=== PATIENT | male | born 1950 | race Caucasian/White ===

== ENCOUNTER 2020-09-10 08:52 | Day surgery (SDC) | payer MEDICARE, OTHER, SELFPAY ==
[2020-09-04 12:21] VITALS: BMI 36.7
--- NOTE | 2020-09-09 10:43 | P.CONAN_ITS ---
Documented by User: Eliz Myles 09/09/20 10:44 HPI - Anesthesia Eval Consult details Narrative: 70yo M for Colonoscopy FORMERLY [facility] Past Medical History Medical History Hyperlipidemia Pre-diabetes Surgical History Surgical History No significant past surgical history Social History Social History Are you a primary home care specialist to a significant other at home: No Do you presently have visiting nurse or other home services: No Smoking Status: Never smoker Use of substances other than those prescribed or required for medical reasons: No Advance Directives: No Advance Directives Information Provided: No Advance Directives on File: No Meds Allergies Allergy/AdvReac Type Severity Reaction Status Date / Time No Known Allergies Allergy Unverified 09/04/20 12:19 [No Known Allergies*] Home Medications Medication Instructions Recorded Confirmed Type simvastatin 1 tab PO BEDTIME 09/04/20 09/04/20 History Exam Exam Date and Time: September 09, 2020 1043 Height,Weight and Vital Signs: Height 5 ft 4 in Weight 97.069 kg Assessment and Plan Assessment Anesthesia Assessment: Chart Reviewed Documented by User: Robert Olivares MD 09/10/20 10:12 [facility] Past Medical History Medical History Hyperlipidemia Pre-diabetes Surgical History Surgical History No significant past surgical history Social History Social History Are you a primary home care specialist to a significant other at home: No Do you presently have visiting nurse or other home services: No Smoking Status: Never smoker Use of substances other than those prescribed or required for medical reasons: No Advance Directives: No Advance Directives Information Provided: No Advance Directives on File: No Meds Allergies Allergy/AdvReac Type Severity Reaction Status Date / Time No Known Allergies Allergy Unverified 09/04/20 12:19 [No Known Allergies*] Home Medications Medication Instructions Recorded Confirmed Type simvastatin 1 tab PO BEDTIME 09/04/20 09/04/20 History Exam Airway Mallampati Class: III TM Dist: >3cm Neck ROM: Full Loose/Missing/Broken Teeth: No Heart: rrr Lungs: nl Other: ao Assessment and Plan Assessment Anesthesia Assessment: Anesthesia Plan Discussed and Chart Reviewed Final Anesthetic Review NPO: Yes ASA Class: III Final Preanesthetic Review: No Changes in Pt Med Stat, Meds/Allgs Chart Reviewed, Consent Obtained/Reviewed and Anes Risks/Benef Reviewed Procedure Risk: Low Anesthetic Plan Anesthetic Plan: MAC: Disposition: Standard PACU
[2020-09-10 09:13] VITALS: BP 151/76; PULSE 48; RESP 18; TEMP 36.4; O2SAT 98
[2020-09-10] MEDS: Lactated Ringers 1,000 ML 100 ML IVCONT (09:24)
--- NOTE | 2020-09-10 10:12 | MHC.SHP ---
Pre-Procedural Eval Section A The patient is an INPATIENT: No Changes since office visit: No Cold of Flu in the past 2 weeks, No New Medical Problems, No Changes in Medication and No Patient answered all questions The History & Physical has been completed within 30 days and I have reviewed it.: Yes Section B Chief Complaint: abnormal findings in stool Allergies: Allergies Allergy/AdvReac Type Severity Reaction Status Date / Time No Known Allergies Allergy Unverified 09/04/20 12:19 [No Known Allergies*] Plan Patient has been examined and remains a candidate for the planned procedure
[2020-09-10 10:42] VITALS: BP 107/60; PULSE 62; RESP 20; TEMP 36.2; O2SAT 97
--- NOTE | 2020-09-10 10:48 | PM.OP ---
Brief Operative Note Date of Service: 09/10/20 Pre-op diagnosis: positive cologuard test Post-op diagnosis: same (colon polyps) Procedure: colonoscopy Surgeon: Brant Ruiz Anesthesia: MAC Estimated blood loss (mL): 2 Condition: stable Disposition: PACU
[2020-09-10 10:57] VITALS: BP 100/70; PULSE 53; RESP 19; TEMP 36.2
--- NOTE | 2020-09-10 11:11 | OP_ITS ---
SURGEON: Brant Ruiz MD INDICATIONS: Abnormal findings in stool. PREOPERATIVE DIAGNOSIS: POSTOPERATIVE DIAGNOSIS: PROCEDURE PERFORMED: Colonoscopy to the terminal ileum with snare polypectomy and biopsy. ESTIMATED BLOOD LOSS: COMPLICATIONS: ANESTHESIA: ASSISTANTS: SPECIMENS: MEDICATIONS: Monitored anesthesia care. DESCRIPTION OF PROCEDURE: History and physical performed. The risks and benefits of the procedure were explained to the patient. Informed consent was obtained. The patient was placed in the left lateral decubitus position. A digital rectal exam was performed and was found to be normal. The Olympus pediatric video colonoscope was introduced into the rectum and advanced to the cecum without difficulty. The cecum was identified by transillumination, palpation, and identification of ileocecal valve. Examination was performed and the scope was removed. He tolerated the procedure well and was taken to recovery area in stable condition. FINDINGS: The terminal ileum was normal. The visualized colonic mucosa was normal. The quality of the prep was good. A single polyp measuring 6 mm was identified at 80 cm and removed with a snare and recovered via suction. The second polyp at 40 cm was less than 5 mm and this was removed with biopsy forceps. Retroflexed examination showed some small internal hemorrhoids. There was mild sigmoid diverticulosis. IMPRESSION: Colon polyps. RECOMMENDATION: Follow up the biopsy results. MD NUHA Strong/NADER / [id number]
== END 2020-09-10 11:31 | disposition home or self-care (01) ==
PROVIDERS: PCP Family Medicine; Visit Provider Internal Medicine Gastroenterology
PROC: 0DJD8ZZ Inspection of Lower Intestinal Tract, Via Natural or Artificial Opening Endoscopic (ICD-10-PCS; CPT 45378; principal; 2020-09-10 10:20)
DX: R19.5 Other fecal abnormalities (principal); D12.6 Benign neoplasm of colon, unspecified; K63.5 Polyp of colon; K57.30 Diverticulosis of large intestine without perforation or abscess without bleeding; K64.8 Other hemorrhoids
CPT/HCPCS: 45385; 45380; 88305

== ENCOUNTER 2020-11-25 08:13 | Outpatient (REF) | payer MEDICARE, OTHER, SELFPAY ==
[2020-11-25 11:04] LABS: Estimated Average Glucose 160 mg/dL; Hemoglobin A1c % 7.2 %
[2020-11-25 11:09] LABS: Creatinine Urine 183.53 mg/dL; Microalbum/Creatinine Ratio Ur 4.3 ug/mg cr
[2020-11-25 11:21] LABS: Alanine Aminotransferase 20 U/L (0-40); Cholesterol 154 mg/dL; Glucose Fasting 127 mg/dL (60-99); HDL Cholesterol 51 mg/dL; LDL Cholesterol Calculated 84 mg/dl; Triglycerides 96 mg/dL
== END 2020-11-25 08:14 | disposition home or self-care (01) ==
LOC: HO.10HDL 08:13
PROVIDERS: Visit Provider Family Medicine
DX: E78.00 Pure hypercholesterolemia, unspecified (principal); Z79.899 Other long term (current) drug therapy; E11.9 Type 2 diabetes mellitus without complications
CPT/HCPCS: 36415; 80061; 82043; 82550; 82947; 83036; 84460

== ENCOUNTER 2021-07-11 07:34 | Outpatient (REF) | payer MEDICARE, OTHER, SELFPAY ==
[2021-07-11 10:44] LABS: Glucose Fasting 138 mg/dL (60-99)
[2021-07-11 11:04] LABS: Estimated Average Glucose 174 mg/dL; Hemoglobin A1c % 7.7 %
== END 2021-07-11 07:35 | disposition home or self-care (01) ==
LOC: HO.10HDL 07:34
PROVIDERS: Visit Provider Family Medicine
DX: E11.9 Type 2 diabetes mellitus without complications (principal)
CPT/HCPCS: 36415; 82947; 83036

== ENCOUNTER 2022-04-16 07:22 | Outpatient (REF) | payer MEDICARE, OTHER, SELFPAY ==
[2022-04-16 09:11] LABS: Estimated Average Glucose 289 mg/dL; Hemoglobin A1c % 11.7 %
[2022-04-16 09:21] LABS: Alanine Aminotransferase 22 U/L (0-40); Anion Gap 13 (12-20); Aspartate Amino Transferase 17 U/L (5-37); Blood Urea Nitrogen 14 mg/dL (9-16); Carbon Dioxide 28 mmol/L (22-29); Chloride 103 mmol/L (96-108); Cholesterol 168 mg/dL; Estimated Glomerular Filt Rate > 60; Glucose Fasting 230 mg/dL (60-99); HDL Cholesterol 48 mg/dL; LDL Cholesterol Calculated 102 mg/dl; Potassium 4.5 mmol/L (3.3-5.1); Sodium 139 mmol/L (135-145); Triglycerides 92 mg/dL
[2022-04-16 11:45] LABS: Creatinine Urine 302.99 mg/dL; Microalbum/Creatinine Ratio Ur 6.9 ug/mg cr
== END 2022-04-16 07:23 | disposition home or self-care (01) ==
LOC: HO.LAB 07:22
PROVIDERS: PCP Family Medicine; Visit Provider Family Medicine
DX: E11.9 Type 2 diabetes mellitus without complications (principal); E78.00 Pure hypercholesterolemia, unspecified; Z79.899 Other long term (current) drug therapy
CPT/HCPCS: 36415; 80051; 80061; 82043; 82550; 82565; 82947; 83036; 84450; 84460; 84520

== ENCOUNTER 2023-04-23 07:32 | Outpatient (REF) | payer MEDICARE, OTHER, SELFPAY ==
[2023-04-23 09:05] LABS: Alanine Aminotransferase 14 U/L (0-40); Albumin Level 3.8 g/dL (3.5-5.0); Alkaline Phosphatase 76 U/L (39-117); Anion Gap 13 (12-20); Aspartate Amino Transferase 18 U/L (5-37); Bilirubin Total 2.2 mg/dL (0.0-1.0); Blood Urea Nitrogen 16 mg/dL (9-16); Calcium 8.9 mg/dL (8.4-10.2); Carbon Dioxide 25 mmol/L (22-29); Chloride 107 mmol/L (96-108); Cholesterol 175 mg/dL; Estimated Glomerular Filt Rate > 60; Glucose Fasting 129 mg/dL (60-99); HDL Cholesterol 42 mg/dL; LDL Cholesterol Calculated 124 mg/dl; Potassium 3.5 mmol/L (3.3-5.1); Sodium 141 mmol/L (135-145); Total Protein 6.6 g/dL (6.5-8.0); Triglycerides 49 mg/dL
[2023-04-23 09:16] LABS: TSH reflex Free T4 4.89 uIU/mL (0.32-4.0)
[2023-04-23 11:39] LABS: Free T4 (Free Thyroxine) 0.85 ng/dL (0.71-1.85)
== END 2023-04-23 07:33 | disposition home or self-care (01) ==
LOC: HO.LAB 07:32
PROVIDERS: PCP Nurse Practitioner Family; Visit Provider Nurse Practitioner Family
DX: Z12.5 Encounter for screening for malignant neoplasm of prostate (principal); E78.5 Hyperlipidemia, unspecified
CPT/HCPCS: 36415; 80053; 80061; 81003; 84153; 84439; 84443; 85025

== ENCOUNTER 2023-04-27 09:52 | Outpatient (AMB) | payer MEDICARE, OTHER, SELFPAY ==
[2023-04-27 10:11] VITALS: BP 126/78; PULSE 48; O2SAT 96; BMI 36.2
--- NOTE | 2023-04-27 10:11 | A.OFFPC_ITS ---
Vital Signs 04/27/23 10:11 Height 5 ft 4 in Weight 211 lb BMI 36.2 BP 126/78 Blood Pressure Location Rt brachial Position Sitting Pulse 48 L Pulse Source Pulse Oximeter Pulse Oximetry (%) 96 Oxygen Delivery Method Room Air Intake Visit Reasons: 6 Month follow up Allergies No Known Allergies [No Known Allergies*] Allergy (Unverified 04/27/23 10:13) Medication List - Last Reconciled 04/27/23 by RADHA Houston simvastatin 1 tab PO BEDTIME Tobacco use date assessed: 04/27/23 Fall risk assessment: No Falls in past year Last assessed Fall Risk: 04/27/23 Dental Screening Dental Screen Date: 04/27/23 HPI 6 Month follow up HPI Details Pt is a diabetic, on a statin. A1c in office today is 7.1. Due for microalbumin, will order. Denies polyuria, polydipsia, and neuropathy. Pt denies any signs and symptoms of hypoglycemia and does know how to correct it. Will refer for eye exam. Will start metformin 500mg. Will send meter and supplies. Pt is bradycardic, will order holter and echo. Denies chest pain, shortness of breath, and dizziness. [facility], LAT[facility] Medical History Hyperlipidemia Pre-diabetes Surgical History No significant past surgical history Social History Housing: Other (pt refused to say ) Are you a primary animal daycare provider to a significant other at home: No Do you presently have visiting nurse or other home services: No Patient Tobacco Use Status: Never used Tobacco e-Cigarette/Vaping Use: Never Used Second Hand Smoke Exposure: No Current occupational status: retired Cognitive needs: No Hearing needs: No Vision needs: Yes Review of Systems Const Reports as per HPI Physical exam (Primary Care) Vital Signs: Last Vital Signs Pulse 48 L 04/27/23 10:11 BP 126/78 04/27/23 10:11 Pulse Ox 96 04/27/23 10:11 Oxygen Delivery Method Room Air 04/27/23 10:11 BMI result Body Mass Index 36.2 Tobacco/Smoking Status: Tobacco use Status Tobacco use date assessed 04/27/23 04/27/23 10:17 Patient Tobacco Use Status Never used Tobacco 04/27/23 10:17 e-Cigarette/Vaping Use Never Used 04/27/23 10:17 Const General: cooperative Nutritional Appearance: obese Orientation/consciousness: patient oriented x3 Resp Effort & Inspection: normal respiratory effort Auscultation: clear to auscultation bilaterally Cardio Rate: bradycardic Rhythm: regular rhythm Heart sounds: S1 normal heart sound present and S2 normal heart sound present Neuro General: patient oriented x3 Extrem Other: bilat feet: + sensation with use of monofilament Right lower extremity: edema Details: 1+ Left lower extremity: edema Details: 1+ Psych Appearance: grossly normal Mental Status: mental status grossly normal Speech and movement: Normal speech and movement present Affect: normal affect Attitude: cooperative Thought process: Normal thought process present Thought content: Normal thought content present Insight: Good insight present (Psych) Judgement: Good judgement present (Psych) Results AMB Hemoglobin A1c AMB Hemoglobin A1c 7.1 % Last Edit by Delicia Bauer CMA on 04/27/23 11: 13 Results Reviewed Results Reviewed: Laboratory Last Values Hgb A1c (Clinic) 7.1 % (4.0-6.0) H 04/27/23 11:11 Assessment and Plan Assessment & Plan (1) Diabetes: Code(s): E11.9 - Type 2 diabetes mellitus without complications Plan: A1c done in office, sending meter and supplies (2) Systolic murmur: Code(s): R01.1 - Cardiac murmur, unspecified Plan: Echo ordered (3) Bradycardia: Code(s): R00.1 - Bradycardia, unspecified Plan: Echo and holter ordered Plan The patient agreed to the use of a certified medical technician assistant for this encounter. Scribed for RADHA Hernandez by gurdeep Escalante scribe, on 04/27/2023 at 10:25 EST. Orders: Orders CA echo transthoracic complete Today R00.1 - Bradycardia, unspecified, R01.1 - Cardiac murmur, unspecified ECG 3 day holter monitor Today R00.1 - Bradycardia, unspecified AMB Hemoglobin A1c Today E11.9 - Type 2 diabetes mellitus without complications AMB EKG-In Office Today R00.1 - Bradycardia, unspecified Referrals Optometry Referral E11.9 - Type 2 diabetes mellitus without complications Medications: New metformin ER 500 mg PO DAILY 90 tabs 0RF Coding Level of Care Code Est Pt Level 3 (93425) Diagnoses Diabetes E11.9 Systolic murmur R01.1 Bradycardia R00.1
== END 2023-04-27 11:28 | disposition home or self-care (01) ==
PROVIDERS: Visit Provider Nurse Practitioner Family
DX: E11.9 Type 2 diabetes mellitus without complications (principal); R01.1 Cardiac murmur, unspecified; R00.1 Bradycardia, unspecified
CPT/HCPCS: 83036; 99213

== ENCOUNTER → 2023-05-28 07:47 | Outpatient (REF) | payer MEDICARE, OTHER, SELFPAY ==
--- NOTE | 2023-05-28 07:51 | HM_ITS ---
Conclusion: 1. Patient was monitored for total period of 2 days and 23 hours 2. Baseline was normal sinus rhythm with average heart of 52 beats per minute 3. Frequent sinus bradycardia noted with 77% of time heart rate below 60 beats per minute with no significant pauses with lower start of 36 beats per minute during sleep hours 4. Occasional PACs and PVCs noted 5. No patient reported events MTDD
--- NOTE | 2023-05-28 07:51 | CA_ITS ---
Transthoracic Echocardiogram Patient (Last, First, Middle): Wilfredo Desir L Gender: Male Date of : 1950 Age: 73 Procedure Date: 05/28/2023 Procedure Type: Transthoracic Echocardiogram Location: OP Height: 162.56 cm Weight: 86.18 kg BSA: 1.91 m2 Heart Rate: bpm BP: 110 / 70 mmHg Denture Technician: TO Referring MD: Kd Petersen [facility] Symptoms: R01.1 - Cardiac murmur, unspecified Study Quality: Fair/contrast Conclusions: - Normal left ventricular size, thickness, systolic function, and wall motion. The visually estimated ejection fraction is between 55-60%. Abnormal diastolic function is noted. Spectral Doppler is indicative of a pseudonormal filling pattern. E/E prime ratio is between 8 and 15 consistent with indeterminate filling pressures. - Mildly increased right ventricular cavity size. There is normal right ventricular systolic function. - Significantly elevated right atrial pressure. Mild pulmonary hypertension is present. Findings Procedure Information Contrast agent, definity, is being given per protocol without apparent complications. Left Ventricle Normal left ventricular size, thickness, systolic function, and wall motion. The visually estimated ejection fraction is between 55-60%. Abnormal diastolic function is noted. Spectral Doppler is indicative of a pseudonormal filling pattern. E/E prime ratio is between 8 and 15 consistent with indeterminate filling pressures. Right Ventricle Mildly increased right ventricular cavity size. There is normal right ventricular systolic function. Atria The left atrium is normal in size. The right atrium is normal in size. Aortic Valve Normal aortic valve structure and function. There is no aortic valve stenosis. There is no aortic valve regurgitation. Mitral Valve The mitral valve appears normal. There is trace mitral valve regurgitation. There is no mitral valve stenosis. Pulmonic Valve The pulmonic valve is likely normal. There is trace pulmonic valve regurgitation. Tricuspid Valve Normal tricuspid valve structure. There is trace tricuspid valve regurgitation. The right ventricular systolic pressure is 41 mmHg. Significantly elevated right atrial pressure. Mild pulmonary hypertension is present. Great Vessels The visualized portions of the pulmonary artery and branches are normal. Venous The inferior vena cava is dilated and does not collapse with inspiration. Pericardium/Pleural There is no evidence of pericardial effusion. Prior Study Comparison No prior study available for comparison. Measurements 2D Linear Measurements IVSd: 0.96 0.6-0.9/0.6-1.0 cm LVIDd: 5.05 3.9-5.3/4.2-5.9 cm LVIDd Index: 2.64 2.4-3.2/2.2-3.1 cm/m2 LVIDs: 3.28 2.0-3.6 cm LVPWd: 0.80 0.7-1.1 cm LA Diam: 2.90 2.7-3.8/3.0-4.0 cm LAIDs Index: 1.52 1.5-2.3 cm/m2 LV Mass: 195.09 67-162/88-224 g LV Mass Index: 102.14 43-95/49-115 g/m2 LVOT Diam: 2.10 3.0+(-)1.3 cm 2D Systolic Function EF 4C: 68.60 >55% EF 2C: 69.10 >55% EF BiP: 67.90 >55% Mitral Valve MV Pk E: 0.96 MV PK A: 0.87 MV Decel Time: 269.00 E/A: 1.10 E'Lateral: 7.62 E'Medial: 5.98 E/E' Med: 16.00 E/E' Lat: 12.50 PHT: 79.00 MVA PHT: 2.78 Decel Posey: 3.56 Aortic Valve AoV Pk Shreyas: 1.82 AoV Mn Shreyas: 1.19 AoV VTI: 0.44 AoV Pk Grad: 13.00 Aov Mn Grad: 7.00 CARMEN Cont.VTI: 2.51 LVOT LVOT Pk Shreyas: 1.32 LVOT Mn Shreyas: 0.74 LVOT VTI: 0.32 LVOT Pk Grad: 7.00 LVOT Mn Grad: 3.00 LVOT Diam: 2.10 LVOT Area: 3.46 Diastolic Function MV Pk E: 0.96 MV Pk A: 0.87 E/A: 1.10 E'Medial: 5.98 E/E' Med: 16.00 E' Laterial: 7.62 E/E' Lat: 12.50 Right Ventricle TAPSE (mm): 22.70 TVS' Shreyas: 11.70 Tricuspid Valve TR Pk Shreyas: 2.54 TR Pk Grad: 26.00 RA Press: 15.00 RVSP: 41.00 Great Vessels Aorta Sinus of Valsalva: 3.14 2.0-3.[address] [place]: 2.42 1.7-3.4 cm Ao Asc: 3.10 2.1-3.4 cm Updated in Other Vendor System with Status of Final Cristian Cruz MD electronically signed on 05/29/2023 10:11:46 PM with status of Final
== END ==
LOC: HO.CARD 07:47
PROVIDERS: PCP Nurse Practitioner Family; Visit Provider Nurse Practitioner Family
DX: R00.1 Bradycardia, unspecified (principal); R01.1 Cardiac murmur, unspecified
CPT/HCPCS: 93242; 93306; Q9957

== ENCOUNTER → 2023-05-28 07:51 | Outpatient (BNV) | payer MEDICARE, OTHER, SELFPAY | PROVIDERS: PCP Nurse Practitioner Family; Visit Provider Internal Medicine Cardiovascular Disease | DX: R00.1 Bradycardia, unspecified (principal) | CPT/HCPCS: 93244; 93306 ==

== ENCOUNTER 2023-07-29 08:21 | Outpatient (AMB) | payer MEDICARE, OTHER, SELFPAY ==
[2023-07-29 08:28] VITALS: BP 130/84; PULSE 46; O2SAT 96
--- NOTE | 2023-07-29 08:28 | MHC.PC.OV ---
Vital Signs 07/29/23 08:28 Height 5 ft 4 in BMI Reason not done Patient refused/unable BP 130/84 Blood Pressure Location Lt brachial Position Sitting Pulse 46 L Pulse Source Pulse Oximeter Pulse Oximetry (%) 96 Oxygen Delivery Method Room Air Intake Visit Reasons: 3m follow up Allergies No Known Allergies [No Known Allergies*] Allergy (Unverified 07/29/23 08:30) Tobacco use date assessed: 07/29/23 Fall risk assessment: No Falls in past year Last assessed Fall Risk: 07/29/23 Dental Screening Dental Screen Date: 07/29/23 Did you have a dental visit in the last 12 months?: No Did you have a dental problem in the last 6 months where you did not have access to dental care?: No Was dental information given to patient?: No HPI 3m follow up HPI Details Pt is a diabetic, on a statin. A1C in office today is 6.3. Due for microalbumin, will order. Denies polyuria, polydipsia, and neuropathy. Pt denies any signs and symptoms of hypoglycemia and does know how to correct it. Pt reports that his blood sugar is well-controlled. Eye exam is up to date. Pt had a recent echo which showed: Normal left ventricular size, thickness, systolic function, and wall motion. The visually estimated ejection fraction is between 55-60%. Abnormal diastolic function is noted. Spectral Doppler is indicative of a pseudonormal filling pattern. E/E prime ratio is between 8 and 15 consistent with indeterminate filling pressures. Mildly increased right ventricular cavity size. There is normal right ventricular systolic function. Significantly elevated right atrial pressure. Mild pulmonary hypertension is present. Pt also had a holter monitor which showed: Baseline was normal sinus rhythm with average heart of 52 beats per minute. Frequent sinus bradycardia noted with 77% of time heart rate below 60 beats per minute with no significant pauses with lower start of 36 beats per minute during sleep hours. Occasional PACs and PVCs noted. Denies chest pain, shortness of breath, and dizziness. He is to follow up with cardiology, i did re-recommend sleep apnea testing. [facility] Medical History Pre-diabetes Hyperlipidemia Surgical History No significant past surgical history Social History Housing: Other (pt refused to say ) Are you a primary resident care spec to a significant other at home: No Do you presently have visiting nurse or other home services: No Patient Tobacco Use Status: Never used Tobacco e-Cigarette/Vaping Use: Never Used Second Hand Smoke Exposure: No Current occupational status: retired Cognitive needs: No Hearing needs: No Vision needs: Yes Review of Systems Const Reports as per HPI Physical exam (Primary Care) Vital Signs: Last Vital Signs Pulse 46 L 07/29/23 08:28 BP 130/84 07/29/23 08:28 Pulse Ox 96 07/29/23 08:28 Oxygen Delivery Method Room Air 07/29/23 08:28 Tobacco/Smoking Status: Tobacco use Status Tobacco use date assessed 07/29/23 07/29/23 08:31 Patient Tobacco Use Status Never used Tobacco 07/29/23 08:31 e-Cigarette/Vaping Use Never Used 07/29/23 08:31 Const General: cooperative Orientation/consciousness: patient oriented x3 Resp Effort & Inspection: normal respiratory effort Auscultation: clear to auscultation bilaterally Cardio Rate: bradycardic Rhythm: regular rhythm Heart sounds: S1 normal heart sound present and S2 normal heart sound present Neuro General: patient oriented x3 Extrem Other: left foot: + sensation with use of monofilament, no ulcerations or lesions Psych Appearance: grossly normal Mental Status: mental status grossly normal Speech and movement: Normal speech and movement present Affect: normal affect Attitude: cooperative Thought process: Normal thought process present Thought content: Normal thought content present Insight: Good insight present (Psych) Judgement: Good judgement present (Psych) Results AMB Hemoglobin A1c AMB Hemoglobin A1c 6.3 % Last Edit by Delicia Bauer CMA on 07/29/23 09:07 Results Reviewed Results Reviewed: Laboratory Last Values Hgb A1c (Clinic) 6.3 % (4.0-6.0) H 07/29/23 09:04 Assessment and Plan Assessment & Plan (1) Diabetes: Code(s): E11.9 - Type 2 diabetes mellitus without complications Plan: Labs ordered Plan The patient agreed to the use of a senior medical transcriptionist for this encounter. Scribed for RADHA Hernandez by Leslie Xander, senior medical transcriptionist, on 07/29/2023 at 08:55 EST Orders: Orders Complete Blood Count Auto Diff Today E11.9 - Type 2 diabetes mellitus without complications Comprehensive [place]. Panel Fast Today E11.9 - Type 2 diabetes mellitus without complications TSH reflex Free T4 Today E11.9 - Type 2 diabetes mellitus without complications UA CC w/rflx Micro + Cult Today E11.9 - Type 2 diabetes mellitus without complications Lipid Panel Today E11.9 - Type 2 diabetes mellitus without complications Microalbumin, Random (w Creat) Today E11.9 - Type 2 diabetes mellitus without complications AMB Hemoglobin A1c Today E11.9 - Type 2 diabetes mellitus without complications Coding Level of Care Code Est Pt Level 3 (05150) Diagnoses Diabetes E11.9
== END 2023-07-29 09:43 | disposition home or self-care (01) ==
PROVIDERS: PCP Nurse Practitioner Family; Visit Provider Nurse Practitioner Family
DX: E11.9 Type 2 diabetes mellitus without complications (principal)
CPT/HCPCS: 83036; 99213

== ENCOUNTER 2023-09-20 09:51 | Outpatient (REF) | payer MEDICARE, OTHER, SELFPAY ==
[2023-09-20 12:22] LABS: Iron 98 mcg/dL (45-160); Percent Iron Saturation 39 % (15-50); Total Iron Binding Capacity 253 mcg/dL (228-428); Unsaturated Iron Binding 155 ug/dL
[2023-09-20 12:28] LABS: Ferritin 229 ng/mL (20-250); TSH reflex Free T4 5.54 uIU/mL (0.32-4.0)
[2023-09-20 13:03] LABS: Free T4 (Free Thyroxine) 0.85 ng/dL (0.71-1.85)
[2023-09-21 16:03] LABS: Transferrin 224 mg/dL (188-341)
== END 2023-09-20 09:52 | disposition home or self-care (01) ==
LOC: HO.LAB 09:51
PROVIDERS: PCP Nurse Practitioner Family; Visit Provider Internal Medicine Cardiovascular Disease
DX: I51.89 Other ill-defined heart diseases (principal); I27.20 Pulmonary hypertension, unspecified; R00.1 Bradycardia, unspecified; E11.9 Type 2 diabetes mellitus without complications; E78.5 Hyperlipidemia, unspecified; Z79.84 Long term (current) use of oral hypoglycemic drugs; Z79.899 Other long term (current) drug therapy
CPT/HCPCS: 36415; 82728; 83540; 84439; 84443; 84466; 93005; 99202

== ENCOUNTER 2023-09-20 09:51 | Outpatient (AMB) | payer MEDICARE, OTHER, SELFPAY ==
--- NOTE | 2023-09-20 09:53 | MHC.OFFVIS ---
Intake Vital Signs 09/20/23 09:54 Height 5 ft 4 in BMI Reason not done Patient refused/unable BP 120/70 Blood Pressure Location Lt brachial Position Sitting Pulse 70 Intake Visit Reasons: INSPECTOR OPEN DIE/ J glomirnaski/ Pulmonary htn/antolin Intake Note: New patient dx pulmonary HTN and bradycardia Network Support Technician Required: No Allergies No Known Allergies [No Known Allergies*] Allergy (Unverified 07/29/23 08:30) Medication List - Last Reconciled 09/20/23 by Ric Samson MD blood sugar diagnostic ([employer]Touch Ultra Test strips) Use to check fasting blood sugar and a random blood sugar daily blood-glucose meter ([employer] Ultra2 Meter) Use to check fasting blood sugar and a random blood sugar daily lancets ([employer] Delica Plus Lancet) Use to check fasting blood sugar and a random blood sugar daily metformin ER 500 mg PO DAILY simvastatin 40 mg PO BEDTIME 90 days HPI HPI Comments History of Present Illness Details Thank you for referring Wilfredo in cardiology consultation today for noted sinus bradycardia and pulmonary hypertension. Patient is a pleasant 73-year-old male with prior history of diabetes and hyperlipidemia. Patient recently was noted to have slow heart rate and subsequently underwent a Holter monitor which showed frequent sinus bradycardia. 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 He attributes his slow heart rate to his good functional status which is likely. He denies any symptoms of fatigue, shortness of breath, lightheadedness, syncope. Patient also had an echocardiogram which showed pseudonormal filling pattern with intermittent filling pressure with normal LV ejection fraction but noted to have RV enlargement with mild pulmonary hypertension and elevated right atrial pressures. He denies any heart failure symptoms. Denies any significant leg edema, abdominal distension, orthopnea, PND. Denies any prolonged palpitation irregular heartbeat. He does snore a lot and says that he has not had any workup for sleep apnea in the past. Family history of father having cardiac issues but not exactly sure as to what. [facility] Medical History Pre-diabetes Hyperlipidemia Surgical History No significant past surgical history Social History Housing: Other (pt refused to say ) Are you a primary career center director to a significant other at home: No Do you presently have visiting nurse or other home services: No Patient Tobacco Use Status: Never used Tobacco e-Cigarette/Vaping Use: Never Used Second Hand Smoke Exposure: No Current occupational status: retired Cognitive needs: No Hearing needs: No Vision needs: Yes Review of Systems Const Denies chills, Denies daytime sleepiness, Denies fatigue, Denies fever(s), Denies frequent falls, Denies poor appetite, Denies snoring, Denies stops breathing during sleep, Denies weakness, Denies weight gain and Denies weight loss Eyes Denies loss of vision ENT Denies dizziness and Denies hearing loss Card Denies chest pain, Denies claudication, Denies leg edema, Denies lightheadedness, Denies palpitations, Denies dyspnea, Denies dyspnea on exertion and Denies orthopnea Resp Denies cough, Denies excessive phlegm production, Denies dyspnea, Denies dyspnea on exertion, Denies snoring and Denies wheezing GI Denies abdominal pain, Denies hematochezia, Denies change in bowel habits, Denies nausea and Denies vomiting Denies dysuria and Denies urinary frequency Musc Denies arthralgias, Denies muscle weakness, Denies numbness and Denies other (frequent falls) Skin/Breast Denies nail changes and Denies rash Neuro Denies Abnormal speech present, Denies dizziness, Denies frequent falls, Denies loss of vision, Denies memory loss, Denies numbness and Denies weakness Psych Denies depression and Denies memory loss Endo Denies fatigue and Denies palpitations Kendall/Lymph Reports easy bruising and Reports other (anemia) Aller/Immun Denies wheezing Physical Exam Vital Signs: Last Vital Signs Pulse 70 09/20/23 09:54 BP 120/70 09/20/23 09:54 Const General: cooperative, comfortable, no acute distress, alert, awake and Physically active Nutritional Appearance: overweight Orientation/consciousness: patient oriented x3 Limitations: no limitations HEENT Head: Yes normocephalic and Yes atraumatic Neck Neck: Yes trachea midline, Yes supple and Yes no JVD Resp Effort & Inspection: normal respiratory effort Auscultation: clear to auscultation bilaterally Cardio Jugular venous distension: no JVD Palpation: normal PMI Rate: regular rate Rhythm: regular rhythm Heart sounds: S1 normal heart sound present, S2 normal heart sound present, no click, no gallops, no murmurs and no rubs GI Auscultation: normal bowel sounds Skin General skin exam: no rashes or lesions noted Neuro General: patient oriented x3 and no focal motor deficits Speech: No Abnormal speech present Extrem General: No clubbing, No cyanosis and Yes edema Psych Appearance: grossly normal Office Procedures EKG Details: EKG shows normal sinus rhythm with low-voltage QRS otherwise no significant abnormality 76362-[id number], Complete Assessment & Plan Assessment & Plan (1) Bradycardia: Code(s): R00.1 - Bradycardia, unspecified Plan: Patient noted to have sinus bradycardia although has no symptoms. He has good aerobic capacity and remains and works in labor intensive job. Sinus bradycardia appears to be physiologic. Discuss with symptoms associated with sick sinus syndrome. He has no current symptoms and no interventions required. Would avoid rate lowering medications in the future. (2) Diastolic dysfunction: Code(s): I51.89 - Other ill-defined heart diseases Plan: Patient noted on echocardiogram to have diastolic dysfunction and with mildly elevated right ankle systolic pressure as well as elevated right atrial pressure which appears secondary to left-sided disease. He has no signs or symptoms of congestive heart failure at this point time. These were discussed with him. Cause for his diastolic dysfunction pulmonary hypertension unclear and possibility of sleep apnea needs to be ruled out. Discussed with him to pursue home sleep study. He is agreeable. If he does have significant sleep apnea may require treatment for the same and also participate in aggressive weight loss program. Cause for restrictive cardiomyopathy with checking TSH and iron studies to rule out any other causes for diastolic dysfunction. This was discussed with him. He understands agrees. Will follow up in the clinic if need be. Thank you for allowing me to partake in his care Orders: Orders Transferrin Today I51.89 - Other ill-defined heart diseases Ferritin Today I51.89 - Other ill-defined heart diseases IRON PROFILE Today I51.89 - Other ill-defined heart diseases TSH reflex Free T4 Today I51.89 - Other ill-defined heart diseases RT home sleep study Today I51.89 - Other ill-defined heart diseases, R40.0 - Somnolence Coding Level of Care Code New Pt Level 4 (88574) Diagnoses Bradycardia R00.1 Diastolic dysfunction I51.89 CPT Codes EKG - CPT: 20654-[id number], Complete ([id number])
[2023-09-20 09:54] VITALS: BP 120/70; PULSE 70
== END 2023-09-20 10:37 | disposition home or self-care (01) ==
LOC: HO.HCS 09:51
PROVIDERS: PCP Nurse Practitioner Family; Visit Provider Internal Medicine Cardiovascular Disease
DX: R00.1 Bradycardia, unspecified (principal); I51.89 Other ill-defined heart diseases
CPT/HCPCS: 93010; 99204

== ENCOUNTER → 2023-11-03 07:52 | Outpatient (REF) | payer MEDICARE, OTHER, SELFPAY | LOC: HO.SL 07:52 | PROVIDERS: PCP Nurse Practitioner Family; Visit Provider Internal Medicine Cardiovascular Disease | DX: R40.0 Somnolence (principal); R06.83 Snoring; I51.89 Other ill-defined heart diseases | CPT/HCPCS: 95806 ==

== ENCOUNTER → 2023-11-03 08:12 | Outpatient (BNV) | payer MEDICARE, OTHER, SELFPAY | PROVIDERS: PCP Nurse Practitioner Family; Visit Provider Internal Medicine | DX: R06.83 Snoring (principal) | CPT/HCPCS: 95806 ==

== ENCOUNTER 2023-11-08 08:50 | Outpatient (AMB) | payer MEDICARE, OTHER, SELFPAY ==
--- NOTE | 2023-11-08 08:59 | A.OFFPC_ITS ---
Vital Signs 11/08/23 09:00 Height 5 ft 4 in BMI Reason not done Patient refused/unable BP 126/80 Blood Pressure Location Rt brachial Position Sitting Pulse 74 Pulse Source Pulse Oximeter Pulse Oximetry (%) 98 Oxygen Delivery Method Room Air Intake Visit Reasons: PE/secondary covers Intake Note: Patient here for Physical exam. Allergies No Known Allergies [No Known Allergies*] Allergy (Unverified 11/08/23 09:00) Tobacco use date assessed: 11/08/23 Fall risk assessment: No Falls in past year Last assessed Fall Risk: 11/08/23 Dental Screening Dental Screen Date: 11/08/23 Was dental information given to patient?: Patient declined HPI PE/secondary covers HPI Details Pt is here for a PE. Will order labs. Colon screen is up to date. PSA is up to date. Denies dribbling with urination, weak stream, and frequent nocturia. Pt is a diabetic, on a statin. A1C in office today is 7.7. Due for microalbumin. Denies polyuria, polydipsia, and neuropathy. Pt denies any signs and symptoms of hypoglycemia and does know how to correct it. Pt reports that his diet has been poor. Reenforced importance of proper diet. Pt would not like anymore meds right now. Pt does not want to take any meds for his thyroid currently. Denies any constipation or fatigue. [facility] Medical History Pre-diabetes Hyperlipidemia Surgical History No significant past surgical history Social History Housing: Other (pt refused to say ) Are you a primary manager progressive care to a significant other at home: No Do you presently have visiting nurse or other home services: No Patient Tobacco Use Status: Never used Tobacco e-Cigarette/Vaping Use: Never Used Second Hand Smoke Exposure: No Current occupational status: retired Cognitive needs: No Hearing needs: No Vision needs: Yes Questionnaire AUDIT C Alcohol Use Questionnaire (AUDIT-C) 1. How often do you have a drink containing alcohol?: Never 3. How often do you have six or more drinks on one occasion?: Never Total Score: 0 Score Reviewed/Action Taken: No Review of Systems Const Denies chills and Denies fever(s) Eyes Denies blurry vision ENT Denies vertigo, Denies dizziness and Denies sore throat Card Denies chest pain at rest, Denies chest pain with activity, Denies diaphoresis, Denies dyspnea and Denies dyspnea on exertion Resp Denies cough, Denies dyspnea, Denies dyspnea on exertion and Denies wheezing GI Denies abdominal pain, Denies melena, Denies hematochezia, Denies constipation, Denies diarrhea and Denies loose stools Denies hematuria Musc Denies numbness and Denies tingling Skin/Breast Denies lesions Neuro Denies vertigo, Denies dizziness, Denies numbness and Denies tingling Psych Denies anxiety, Denies depression, Denies homicidal ideation, Denies suicidal ideation and Denies other (substance abuse) Aller/Immun Denies wheezing Physical exam (Primary Care) Vital Signs: Last Vital Signs Pulse 74 11/08/23 09:00 BP 126/80 11/08/23 09:00 Pulse Ox 98 11/08/23 09:00 Oxygen Delivery Method Room Air 11/08/23 09:00 Tobacco/Smoking Status: Tobacco use Status Tobacco use date assessed 11/08/23 11/08/23 09:03 Patient Tobacco Use Status Never used Tobacco 11/08/23 09:03 e-Cigarette/Vaping Use Never Used 11/08/23 09:03 Const General: cooperative Nutritional Appearance: well nourished Orientation/consciousness: patient oriented x3 HENMT Head: Yes normal to inspection, Yes normocephalic and Yes atraumatic Ears: TM's normal bilaterally Eyes General: appearance normal, both eyes and all related structures Alignment and Position: alignment normal and position normal Neck Neck: Yes normal visual inspection and Yes no lymphadenopathy Thyroid: Thyroid normal Resp Effort & Inspection: normal respiratory effort Auscultation: clear to auscultation bilaterally Cardio Rate: regular rate Rhythm: regular rhythm Heart sounds: S1 normal heart sound present, S2 normal heart sound present and no murmurs GI Palpation (GI): Soft to palpation and nontender Auscultation: normal bowel sounds Male General Exam: Yes normal external exam Penis: normal penis Scrotum: scrotum normal, testes descended bilaterally and no inguinal hernias Testes: no testicular mass Skin Rashes: no rashes Neuro General: patient oriented x3, moves all extremities, no focal motor deficits and deep tendon reflexes 2+ bilaterally Romberg Test: Negative Extrem Other: bilat feet: + sensation with use of monofilament, feet intact Psych Appearance: grossly normal Mental Status: mental status grossly normal Speech and movement: Normal speech and movement present Affect: normal affect Attitude: cooperative Thought process: Normal thought process present Thought content: Normal thought content present Insight: Good insight present (Psych) Judgement: Good judgement present (Psych) Results AMB Hemoglobin A1c AMB Hemoglobin A1c 7.7 % Last Edit by JC Mcbride on 11/08/23 09 :36 Assessment and Plan Assessment & Plan (1) Elevated TSH: Code(s): R79.89 - Other specified abnormal findings of blood chemistry (2) Diabetes: Code(s): E11.9 - Type 2 diabetes mellitus without complications Plan The patient agreed to the use of a director medical affairs for this encounter. Scribed for RADHA Hernandez by Leslie Terrell director medical affairs, on 11/08/2023 at 09:20 EST. Orders: Orders AMB Hemoglobin A1c Today E11.9 - Type 2 diabetes mellitus without complications Coding Level of Care Code Est Pt Prev Care >65y(88458) Diagnoses Elevated TSH R79.89 Diabetes E11.9
[2023-11-08 09:00] VITALS: BP 126/80; PULSE 74; O2SAT 98
== END 2023-11-08 09:49 | disposition home or self-care (01) ==
LOC: HO.HMGC 08:50
PROVIDERS: PCP Nurse Practitioner Family; Visit Provider Nurse Practitioner Family
DX: Z00.00 Encounter for general adult medical examination without abnormal findings (principal); R79.89 Other specified abnormal findings of blood chemistry; E11.9 Type 2 diabetes mellitus without complications
CPT/HCPCS: 83036; 99397

== ENCOUNTER 2024-02-25 07:26 | Outpatient (REF) | payer MEDICARE, OTHER, SELFPAY ==
[2024-02-25 07:48] LABS: MANUAL DIFF FLAG NO
[2024-02-25 08:23] LABS: Basophils Absolute Auto 0.1 X10*3/uL (0.0-0.2); Basophils Percent Auto 1.3 % (0-2); Eosinophils Absolute Auto 0.4 X10*3/uL (0.0-0.4); Hematocrit 43.6 % (42.0-52.0); Hemoglobin 15.1 g/dl (14.0-18.0); Imm Gran Abs Auto 0.02 X10*3/uL (0.00-0.03); Imm Gran Pct Auto 0.3 % (0.0-0.4); Lymphocytes Absolute Auto 1.3 X10*3/uL (1.2-4.9); Mean Corpuscular HGB Conc 34.6 g/dl (31.0-36.0); Mean Corpuscular Hemoglobin 31.5 pg (27.0-33.0); Mean Corpuscular Volume 90.8 fL (80.0-98.0); Mean Platelet Volume 10.4 fL (9.4-12.4); Monocytes Absolute Auto 0.6 X10*3/uL (0.1-1.2); Monocytes Percent Auto 9.6 % (2-11); Neutrophils Absolute Auto 4.3 x10*3/uL (2.0-8.3); Neutrophils Percent Auto 63.8 % (45-73); Platelet Count 208 X10*3/uL (160-400); Red Cell Distribution Width 12.4 % (11.0-16.0); White Blood Count 6.7 X10*3/uL (4.8-10.8)
[2024-02-25 08:57] LABS: Alanine Aminotransferase 17 U/L (0-40); Alkaline Phosphatase 81 U/L (39-117); Anion Gap 14 (12-20); Aspartate Amino Transferase 20 U/L (5-37); Bilirubin Total 1.9 mg/dL (0.0-1.0); Blood Urea Nitrogen 16 mg/dL (9-16); Calcium 9.6 mg/dL (8.4-10.2); Carbon Dioxide 28 mmol/L (22-29); Chloride 104 mmol/L (96-108); Cholesterol 126 mg/dL (<200); Estimated Glomerular Filt Rate > 60; Glucose Fasting 137 mg/dL (60-99); HDL Cholesterol 43 mg/dL (>40); LDL Cholesterol Calculated 69 mg/dL (<100); Potassium 4.5 mmol/L (3.3-5.1); Sodium 141 mmol/L (135-145); Total Protein 7.2 g/dL (6.5-8.0); Triglycerides 70 mg/dL (<150)
[2024-02-25 09:06] LABS: Appearance Urine Clear; Color Urine Yellow; Glucose Urine UA Negative (Negative); Leukocyte Esterase Urine Negative (Negative); Nitrite Urine Negative (Negative); Specific Gravity - Urine 1.015 (1.005-1.025); Urine Blood Negative (Negative); Urine Ketones Negative (Negative); Urine Protein Negative (Neg-Trace)
[2024-02-25 09:13] LABS: TSH reflex Free T4 6.68 uIU/mL (0.32-4.0)
[2024-02-25 09:38] LABS: Creatinine Urine 115.31 mg/dL; Microalbumin Urine < 5.0 mg/L
== END 2024-02-25 07:27 | disposition home or self-care (01) ==
LOC: HO.LAB 07:26
PROVIDERS: PCP Nurse Practitioner Family; Visit Provider Nurse Practitioner Family
DX: E11.9 Type 2 diabetes mellitus without complications (principal)
CPT/HCPCS: 36415; 80053; 80061; 81003; 82043; 82570; 84439; 84443; 85025

== ENCOUNTER 2024-03-01 08:35 | Outpatient (AMB) | payer MEDICARE, OTHER, SELFPAY ==
--- NOTE | 2024-03-01 08:37 | MHC.PC.OV ---
Vital Signs 03/01/24 08:40 BMI Reason not done Patient refused/unable BP 120/82 Blood Pressure Location Lt brachial Position Sitting Pulse 50 Pulse Source Pulse Oximeter Pulse Oximetry (%) 98 Oxygen Delivery Method Room Air Intake Visit Reasons: 3 Month F/U Intake Note: Patient here for diabetes f/u. pt states sugars at home have been pretty good . Allergies No Known Allergies [No Known Allergies*] Allergy (Unverified 03/01/24 08:41) Tobacco use date assessed: 11/08/23 Fall risk assessment: No Falls in past year Last assessed Fall Risk: 03/01/24 Dental Screening Dental Screen Date: 11/08/23 HPI 3 Month F/U HPI Details Pt is a diabetic, on a statin. A1C in office today is 7.4. Microalbumin is up to date. Denies polyuria, polydipsia, and neuropathy. Pt denies any signs and symptoms of hypoglycemia and does know how to correct it. Pt would not like to make any med changes. Eye exam is up to date. Will stop simvastatin and start atorvastatin. Pt's bilirubin was elevated. Denies any abdominal pain. Will order US and labs. Hx of elevated TSH. Pt would not like a medication for this. Denies any fatigue or constipation. Will continue to monitor. [facility] Medical History Pre-diabetes Hyperlipidemia Surgical History No significant past surgical history Social History Housing: Other (pt refused to say ) Are you a primary field care coordinator to a significant other at home: No Do you presently have visiting nurse or other home services: No Patient Tobacco Use Status: Never used Tobacco e-Cigarette/Vaping Use: Never Used Second Hand Smoke Exposure: No Current occupational status: retired Cognitive needs: No Hearing needs: No Vision needs: Yes Questionnaire PHQ-9 Over the last 2 weeks, how often have you been bothered by any of the following problems? 05605 - PHQ-9 Billing: Patient declined-do not bill Source: Developed by Drs. Kerwin Orta, Katherine Beaver, Walter Mancia and colleagues, with an educational nathan from [employer]. Thrive Questionnaire Date Thrive assessed: 03/01/24 What is your living situation today?: I choose not to answer this question Within the past 12 months, did the food you bought not last and you didn't have the money to get more?: I choose not to answer this question Within the past 12 months, did you worry whether your food would run out before you got money to buy more?: I choose not to answer this question Do you have trouble paying for medicines?: I choose not to answer this question Do you have trouble getting transportation to medical appointments?: I choose not to answer this question Do you have trouble paying your heating and electricity bill?: I choose not to answer this question Do you have trouble taking care of your child, family member or friend?: I choose not to answer this question Do you have trouble with day-to-day activities such as bathing, preparing meals, shopping, managing finances, etc.?: I choose not to answer this question Are you currently unemployed and looking for a job?: I choose not to answer this question Are you interested in more education?: I choose not to answer this question Currently or been in a relationship where the following occur: I choose not to answer this question THRIVE Score: 0 SALAZAR-7 AMB Questionnaire SALAZAR-7 Date SALAZAR - 7 assessed: 03/01/24 Source: Developed by Drs. Kerwin Orta, Katherine Beaver, Walter Mancia and colleagues, with an educational nathan from [employer]. SALAZAR-7 Assessment Billing SALAZAR-7 Assessment Tool: pt declined-do not bill Review of Systems Const Reports as per HPI Physical exam (Primary Care) Vital Signs: Last Vital Signs Pulse 50 03/01/24 08:40 BP 120/82 03/01/24 08:40 Pulse Ox 98 03/01/24 08:40 Oxygen Delivery Method Room Air 03/01/24 08:40 Tobacco/Smoking Status: Tobacco use Status Tobacco use date assessed 11/08/23 03/01/24 08:38 Patient Tobacco Use Status Never used Tobacco 03/01/24 08:38 e-Cigarette/Vaping Use Never Used 03/01/24 08:38 Thrive Assessment: Date of Thrive Assessment Date Thrive assessed 03/01/24 03/01/24 08:46 Currently or been in a relationship where the following occur: I choose not to answer this question Const General: cooperative Orientation/consciousness: patient oriented x3 Resp Effort & Inspection: normal respiratory effort Auscultation: clear to auscultation bilaterally Cardio Rate: regular rate Rhythm: regular rhythm Heart sounds: S1 normal heart sound present and S2 normal heart sound present Neuro General: patient oriented x3 Extrem Other: bilat feet: + sensation with use of monofilament, feet intact Psych Appearance: grossly normal Mental Status: mental status grossly normal Speech and movement: Normal speech and movement present Affect: normal affect Attitude: cooperative Thought process: Normal thought process present Thought content: Normal thought content present Insight: Good insight present (Psych) Judgement: Good judgement present (Psych) Results AMB Hemoglobin A1c AMB Hemoglobin A1c 7.4 % Last Edit by JC Mcbride on 03/01/24 08:54 Assessment and Plan Assessment & Plan (1) Elevated bilirubin: Code(s): R17 - Unspecified jaundice Plan: No abd pains, labs ordered, ABD US. (2) Elevated TSH: Code(s): R79.89 - Other specified abnormal findings of blood chemistry Plan: cont to monitor, pt does not want to start medication for this currently, denies any sig fatigue, constipation. (3) Diabetes: Code(s): E11.9 - Type 2 diabetes mellitus without complications Plan: does not want to change meds, wants to work on diet Plan The patient agreed to the use of a medical receptionist assistant for this encounter. Scribed for RADHA Hernandez by Leslie Terrell medical receptionist assistant, on 03/01/2024 at 08:50 EST. Orders: Orders AMB Hemoglobin A1c Today Z13.9 - Encounter for screening, unspecified US abdomen complete Today R17 - Unspecified jaundice Medications: New atorvastatin 40 mg PO BEDTIME 90 tabs 0RF Discontinued simvastatin Discontinued Reason: Doctor's Order 40 mg PO BEDTIME 90 days 90 tabs 2RF Coding Level of Care Code Est Pt Level 3 (53486) Diagnoses Elevated bilirubin R17 Elevated TSH R79.89 Diabetes E11.9
[2024-03-01 08:40] VITALS: BP 120/82; PULSE 50; O2SAT 98
== END 2024-03-01 11:46 | disposition home or self-care (01) ==
PROVIDERS: PCP Nurse Practitioner Family; Visit Provider Nurse Practitioner Family
DX: R17 Unspecified jaundice (principal); R79.89 Other specified abnormal findings of blood chemistry; E11.9 Type 2 diabetes mellitus without complications; Z13.9 Encounter for screening, unspecified
CPT/HCPCS: 83036; 99213

== ENCOUNTER 2024-07-05 07:55 | Outpatient (AMB) | payer MEDICARE, OTHER, SELFPAY ==
[2024-07-05 07:58] VITALS: BP 130/82; PULSE 76; O2SAT 98
--- NOTE | 2024-07-05 07:58 | A.OFFPC_ITS ---
Vital Signs 07/05/24 07:58 Height 5 ft 4 in BP 130/82 Blood Pressure Location Rt brachial Position Sitting Pulse 76 Pulse Source Pulse Oximeter Pulse Oximetry (%) 98 Intake Visit Reasons: 4 month follow up - see comments Intake Note: pt is here for 4 month follow up, a1c done in office today Plumbing And Heating Contractor Required: No Accompanied by: Self / Same As Patient Allergies No Known Allergies [No Known Allergies*] Allergy (Verified 07/05/24 08:48) Medication List - Last Reconciled 07/05/24 by RADHA Houston atorvastatin 40 mg PO BEDTIME blood sugar diagnostic ([employer] Ultra Test strips) Use to check fasting blood sugar and a random blood sugar daily blood-glucose meter ([employer] Ultra2 Meter) Use to check fasting blood sugar and a random blood sugar daily lancets ([employer] Delica Plus Lancet) Use to check fasting blood sugar and a random blood sugar daily metformin ER 500 mg PO DAILY Tobacco use date assessed: 11/08/23 Fall risk assessment: No Falls in past year Last assessed Fall Risk: 07/05/24 Dental Screening Dental Screen Date: 11/08/23 HPI 4 month follow up - see comments HPI Details Pt is a diabetic, on a statin. A1C in office today is 6.9. Microalbumin is up to date. Denies polyuria, polydipsia, and neuropathy. Pt denies any signs and symptoms of hypoglycemia and does know how to correct it. Pt's TSH was elevated. He would not like to start a medication for this. Will repeat labs to cont to monitor. denies any constipation, feeling sluggish, cold intolerance. [facility] Medical History Pre-diabetes Hyperlipidemia Surgical History No significant past surgical history Social History Housing: Other (pt refused to say ) Are you a primary career information specialist to a significant other at home: No Do you presently have visiting nurse or other home services: No Patient Tobacco Use Status: Never used Tobacco e-Cigarette/Vaping Use: Never Used Second Hand Smoke Exposure: No Current occupational status: retired Cognitive needs: No Hearing needs: No Vision needs: Yes Questionnaire Thrive Questionnaire Date Thrive assessed: 03/01/24 SALAZAR-7 AMB Questionnaire SALAZAR-7 Date SALAZAR - 7 assessed: 03/01/24 Source: Developed by Drs. Kerwin Orta, Katherine Beaver, Walter Mancia and colleagues, with an educational nathan from [employer]. Review of Systems Const Reports as per HPI Physical exam (Primary Care) Vital Signs: Last Vital Signs Pulse 76 07/05/24 07:58 BP 130/82 07/05/24 07:58 Pulse Ox 98 07/05/24 07:58 Tobacco/Smoking Status: Tobacco use Status Tobacco use date assessed 11/08/23 07/05/24 07:59 Patient Tobacco Use Status Never used Tobacco 07/05/24 07:59 e-Cigarette/Vaping Use Never Used 07/05/24 07:59 Thrive Assessment: Date of Thrive Assessment Date Thrive assessed 03/01/24 07/05/24 07:59 Const General: cooperative Orientation/consciousness: patient oriented x3 Resp Effort & Inspection: normal respiratory effort Auscultation: clear to auscultation bilaterally Cardio Rate: regular rate Rhythm: regular rhythm Heart sounds: S1 normal heart sound present, S2 normal heart sound present and Murmur heart sound present systolic Neuro General: patient oriented x3 Extrem Other: bilat feet: + sensation with use of monofilament, feet intact Psych Appearance: grossly normal Mental Status: mental status grossly normal Speech and movement: Normal speech and movement present Affect: normal affect Attitude: cooperative Thought process: Normal thought process present Thought content: Normal thought content present Insight: Good insight present (Psych) Judgement: Good judgement present (Psych) Results AMB Hemoglobin A1c AMB Hemoglobin A1c 6.9 % Last Edit by Yosef Nunn CMA on 07/05/24 08: 23 Assessment and Plan Assessment & Plan (1) Elevated TSH: Code(s): R79.89 - Other specified abnormal findings of blood chemistry Plan: Labs ordered, will cont to monitor. Pt is reluctant to start any medications, currently. (2) Diabetes: Code(s): E11.9 - Type 2 diabetes mellitus without complications Plan: Labs ordered, 6.9 a1c Plan The patient agreed to the use of a medical support assistant for this encounter. Scribed for Kd Petersen [facility]- by Leslie Terrell, medical support assistant, on 07/05/2024 at 08:10 EST. Orders: Orders Complete Blood Count Auto Diff Today E11.9 - Type 2 diabetes mellitus without complications, R79.89 - Other specified abnormal findings of blood chemistry TSH reflex Free T4 Today E11.9 - Type 2 diabetes mellitus without complications, R79.89 - Other specified abnormal findings of blood chemistry AMB Hemoglobin A1c Today Z13.9 - Encounter for screening, unspecified Comprehensive [place]. Panel Fast Today E11.9 - Type 2 diabetes mellitus without complications, R79.89 - Other specified abnormal findings of blood chemistry UA CC w/rflx Micro + Cult Today E11.9 - Type 2 diabetes mellitus without complications, R79.89 - Other specified abnormal findings of blood chemistry Thyroid Peroxidase Antibodies Today E11.9 - Type 2 diabetes mellitus without complications, R79.89 - Other specified abnormal findings of blood chemistry Coding Level of Care Code Est Pt Level 3 (33347) Diagnoses Elevated TSH R79.89 Diabetes E11.9
== END 2024-07-05 08:36 | disposition home or self-care (01) ==
PROVIDERS: PCP Nurse Practitioner Family; Visit Provider Nurse Practitioner Family
DX: E11.9 Type 2 diabetes mellitus without complications (principal); R79.89 Other specified abnormal findings of blood chemistry

== ENCOUNTER → 2024-07-05 07:55 | Outpatient (BNVA) | payer MEDICARE, OTHER, SELFPAY | PROVIDERS: PCP Nurse Practitioner Family; Visit Provider Nurse Practitioner Family | DX: E11.9 Type 2 diabetes mellitus without complications (principal); R79.89 Other specified abnormal findings of blood chemistry; Z79.84 Long term (current) use of oral hypoglycemic drugs | CPT/HCPCS: 83036; 99212 ==

== ENCOUNTER 2024-12-04 07:31 | Outpatient (AMB) | payer MEDICARE, OTHER, SELFPAY ==
[2024-12-04 07:38] VITALS: BP 130/80; PULSE 64; RESP 16; TEMP 36.6; O2SAT 96
--- NOTE | 2024-12-04 07:38 | A.OFFPC_ITS ---
Vital Signs 12/04/24 07:38 Height 5 ft 4 in BMI Reason not done Patient refused/unable BP 130/80 Blood Pressure Location Lt brachial Position Sitting Respiration 16 Pulse 64 Pulse Source Pulse Oximeter Temp 97.8 F Temp Source Oral Pulse Oximetry (%) 96 Oxygen Delivery Method Room Air Intake Visit Reasons: PE/secondary covers Intake Note: Pt is here today for his PE Allergies No Known Allergies [No Known Allergies*] Allergy (Verified 12/04/24 07:40) Medication List - Last Reconciled 12/04/24 by PRISCILA [place] atorvastatin 40 mg PO BEDTIME blood sugar diagnostic ([employer] Ultra Test strips) Use to check fasting blood sugar and a random blood sugar daily blood-glucose meter ([employer] Ultra2 Meter) Use to check fasting blood sugar and a random blood sugar daily lancets ([employer] Delica Plus Lancet) Use to check fasting blood sugar and a random blood sugar daily metformin ER 500 mg PO DAILY Tobacco use date assessed: 12/04/24 Fall risk assessment: No Falls in past year Last assessed Fall Risk: 12/04/24 Dental Screening Dental Screen Date: 12/04/24 HPI PE/secondary covers HPI0 Details History of Present Illness The patient is a 74-year-old male presenting with Type 2 Diabetes Mellitus. His diabetes management history reveals a current hemoglobin A1c level of 8.9%, indicating poor glycemic control. The patient has expressed concerns about continuing metformin due to perceived side effects and opts not to use it. He is scheduled to begin Jardiance at 10 mg. The patient is aware of dietary modifications and acknowledges that winter poses challenges to maintaining physical activity, potentially impacting his weight and diabetes management. Furthermore, while he is due for a colonoscopy in the fall, he currently refuses the procedure, as well as the Cologuard test. Additionally, he refuses a digital rectal exam today but reports no urinary symptoms. His past medical history is positive for obesity. Pt reports he will make his own eye exam. He refused all vaccinations Health Maintenance - Due for colonoscopy in fall 2024, dwayne ent currently refusing. - Refused digital rectal exam for prosta te screening. - Discussion on lifestyle modification i ncluding dietary changes and physical activity. Social History - Reports challenges in maintaining acti vity level during the winter. - No use of tobacco, alcohol, or illicit substances discussed. Review of Systems - Denies chest pain. - Denies shortness of breath. - Denies fever, chills. - Denies dizziness. - Denies nausea, vomiting. - Denies diarrhea. Physical Exam General: Cooperative, healthy appearing, comfortable, no acute distress and well developed, obese Orientation: Patient oriented x3 Limitations: No limitations Head: Normal to inspection Ears: Hearing grossly normal bilaterally Nose: Normal external nose present Face and sinus: Normal facial exam Eyes: Appearance normal, both eyes and all related structures Neck: Normal visual inspection and Yes full ROM Respiratory: Normal respiratory effort and able to speak in complete sentences. Clear to auscultation bilaterally Cardiovascular: Regular rate and rhythm. Normal S1 and S2, faint murmur appreciated GI: Normal to inspection. Soft to palpation and nontender Skin: No rashes or lesions noted Neuro: Patient oriented x3 Extremities: Normal to inspection, feet intact with good sensation using monofilament Results - Labs: Hemoglobin A1c 8.9% (elevated). Plan - Initiate Jardiance 10 mg for Type 2 Di abetes Mellitus. - Encourage dietary modifications and in creased physical activity despite seasonal challenges. - Educate on the importance of screening and discuss options barring refusal. - Schedule follow-up in three months for diabetes management assessment. - Encourage patient to schedule an indep endent eye exam. Discussion Notes During the visit, I discussed with the patient the management of his Type 2 Diabetes Mellitus, emphasizing the need for glycemic control given his elevated hemoglobin A1c level of 8.9%. I proposed initiating Jardiance at 10 mg to address his diabetes given his reluctance to continue metformin due to concerns over side effects. We explored lifestyle and dietary modifications, highlighting the challenges he faces in remaining active during the winter months. We also discussed the necessity of routine screenings, including a colonoscopy and a digital rectal exam, both of which he declined at this visit. I underscored the benefits of adherence to recommended screenings for early detection and prevention but acknowledged his current decision to defer. Follow-up is planned in three months to reassess diabetes management, and he is advised to arrange an eye examination on his own accord. Patient Instructions - Begin taking Jardiance 10 mg daily. - Focus on dietary changes to improve bl ood sugar control. - Increase physical activity, even durin g the winter months. - Schedule and attend an eye exam indepe ndently. - Return for follow-up visit in three mo nths to monitor diabetes management. [facility] Medical History Pre-diabetes Hyperlipidemia Surgical History No significant past surgical history Social History Housing: Other (pt refused to say ) Are you a primary child care supervisor to a significant other at home: No Do you presently have visiting nurse or other home services: No Patient Tobacco Use Status: Never used Tobacco e-Cigarette/Vaping Use: Never Used Second Hand Smoke Exposure: No Current occupational status: retired Cognitive needs: No Hearing needs: No Vision needs: Yes Questionnaire PHQ-9 Over the last 2 weeks, how often have you been bothered by any of the following problems? 46600 - PHQ-9 Billing: Patient declined-do not bill Source: Developed by Drs. Kerwin Orta, Katherine Beaver, Walter Mancia and colleagues, with an educational nathan from [employer]. Thrive Questionnaire Date Thrive assessed: 03/01/24 SALAZAR-7 AMB Questionnaire SALAZAR-7 Date SALAZAR - 7 assessed: 03/01/24 Source: Developed by Drs. Kerwin Orta, Katherine Beaver, Walter Mancia and colleagues, with an educational nathan from [employer]. Physical exam (Primary Care) Vital Signs: Last Vital Signs Temp 97.8 F 12/04/24 07:38 Pulse 64 12/04/24 07:38 Resp 16 12/04/24 07:38 BP 130/80 12/04/24 07:38 Pulse Ox 96 12/04/24 07:38 Oxygen Delivery Method Room Air 12/04/24 07:38 Tobacco/Smoking Status: Tobacco use Status Tobacco use date assessed 12/04/24 12/04/24 07:45 Patient Tobacco Use Status Never used Tobacco 12/04/24 07:40 e-Cigarette/Vaping Use Never Used 12/04/24 07:40 Thrive Assessment: Date of Thrive Assessment Date Thrive assessed 03/01/24 12/04/24 07:40 Results AMB Hemoglobin A1c AMB Hemoglobin A1c 8.9 % Last Edit by Stefanie Graff CMA on 12/04/24 07:59 Coding Level of Care Code Est Pt Prev Care >65y(06289) Diagnoses Physical exam Z00.00 Diabetes E11.9 Assessment & Plan Assessment & Plan (1) Physical exam: Code(s): Z00.00 - Encounter for general adult medical examination without abnormal findings Category: Medical (2) Diabetes: Code(s): E11.9 - Type 2 diabetes mellitus without complications Category: Medical Plan . Orders: Orders UA CC w/rflx Micro + Cult Today E11.9 - Type 2 diabetes mellitus without complications, Z00.00 - Encounter for general adult medical examination without abnormal findings AMB Hemoglobin A1c Today E11.9 - Type 2 diabetes mellitus without complications Complete Blood Count Auto Diff Today E11.9 - Type 2 diabetes mellitus without complications, Z00.00 - Encounter for general adult medical examination without abnormal findings Comprehensive [place]. Panel Fast Today E11.9 - Type 2 diabetes mellitus without complications, Z00.00 - Encounter for general adult medical examination without abnormal findings TSH reflex Free T4 Today E11.9 - Type 2 diabetes mellitus without complications, Z00.00 - Encounter for general adult medical examination without abnormal findings Lipid Panel Today E11.9 - Type 2 diabetes mellitus without complications, Z00.00 - Encounter for general adult medical examination without abnormal findings Prostate Specific Antigen Scr Today Z12.5 - Encounter for screening for malignant neoplasm of prostate Medications: New empagliflozin (Jardiance) 10 mg PO DAILY 30 days 30 tabs 3RF Discontinued metformin ER Discontinued Reason: Doctor's Order 500 mg PO DAILY 90 tabs 1RF E11.9 - Type 2 diabetes mellitus without complications
== END 2024-12-04 08:14 | disposition home or self-care (01) ==
PROVIDERS: PCP Nurse Practitioner Family; Visit Provider Nurse Practitioner Family
DX: Z00.00 Encounter for general adult medical examination without abnormal findings (principal); E11.9 Type 2 diabetes mellitus without complications

== ENCOUNTER → 2024-12-04 07:31 | Outpatient (BNVA) | payer MEDICARE, OTHER, SELFPAY | PROVIDERS: PCP Nurse Practitioner Family; Visit Provider Nurse Practitioner Family | DX: Z00.00 Encounter for general adult medical examination without abnormal findings (principal); E11.9 Type 2 diabetes mellitus without complications | CPT/HCPCS: 83036; 99397 ==

== ENCOUNTER 2025-02-17 14:46 | Emergency (ER) | payer MEDICARE, OTHER, SELFPAY ==
[2025-02-17] VITALS (7 sets, daily range): BP systolic 87–112; BP diastolic 32–68; PULSE 63–94; RESP 16–20; TEMP 36.7–38.4; O2SAT 92–97; BMI 30.9
--- NOTE | ~2025-02-17 | CT_ITS ---
CLINICAL HISTORY: Colitis, appendicitis?. fever? CT abdomen and pelvis with contrast Comparison: None Findings: No consolidation or effusion. Fatty atrophy of the pancreas. Liver, gallbladder, spleen, and adrenal glands are within normal limits. Right pelviectasis without hydronephrosis. Symmetric contrast enhancement of the kidneys. No urolithiasis. Bilateral renal cysts. Aortic atherosclerosis. No aneurysm. Retroaortic left renal vein. No enlarged abdominopelvic lymph nodes. Colonic diverticulosis without acute inflammation. No bowel obstruction, pneumatosis or pneumoperitoneum. Normal appendix. Small fat containing umbilical hernia. Fat containing bilateral inguinal hernias. Prostatomegaly. Right anterolateral bladder diverticulum. The bones are intact. IMPRESSION: 1. No acute intraabdominal or pelvic pathology. 2. No evidence of colitis or appendicitis. This document has been electronically signed by: Karen Nowak MD on 02/17/2025 22:40:22
--- NOTE | ~2025-02-17 | CT_ITS ---
CLINICAL HISTORY: Pneumonia? CT chest with contrast Comparison: None Findings: The heart size is normal. Ectatic descending thoracic aorta measuring 3.5 cm. No dissection, penetrating atherosclerotic ulcer or significant atherosclerotic disease. Heterogeneous thyroid gland without suspicious nodules. No enlarged mediastinal or hilar lymph nodes. No consolidation or effusion. No pneumothorax. No acute findings in the visualized upper abdomen. No acute fractures. IMPRESSION: 1. No acute intrathoracic findings. This document has been electronically signed by: Karen Nowak MD on 02/17/2025 22:34:44
[2025-02-17] MEDS: Ibuprofen 600 MG TABLET PO (15:24)
--- NOTE | 2025-02-17 15:26 | ED_ITS ---
HPI - General Adult General Chief complaint: General Medical Stated complaint: tick bite week ago, fever, chills Time Seen by Provider: 02/17/25 15:22 Source: patient Mode of arrival: ambulatory Limitations: no limitations History of Present Illness ED Provider: Katty Parekh NP HPI narrative: Patient is a 74-year-old male who presents emergency department for evaluation. He endorses having a tick bite 1-2 weeks ago, reports it was during school vacation 02/04/25-02/09/2025 where he spent some time outdoors, and one of the days during that week he found himself to have a tick to the right proximal medial thigh that was self removed. Is not aware of how long the tick may have been there. He has since developed a very mild redness just around the scabbed bite he reports no greater than a fingerprint. Two days ago he began feeling tired and fatigued. Yesterday he started experiencing feeling sweaty, having shaking chills, tactile fevers, headache, stomach upset with mild nausea but no vomiting, denies overt abdominal pain, no diarrhea/ hematochezia or melena. He does admit to having urinary frequency but states that he was recently started on Jardiance. 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 Related Data Previous Rx's ?Medication ?Instructions ?Recorded blood sugar diagnostic (OneTouch #100 ea 08/07/24 Ultra Test strips) blood-glucose meter (OneTouch #1 ea 08/07/24 Ultra2 Meter) lancets 33 gauge (OneTouch Delica #100 ea 08/07/24 Plus Lancet) empagliflozin 10 mg tablet 10 mg PO DAILY 30 days #30 tabs 12/04/24 (Jardiance) atorvastatin 40 mg tablet 40 mg PO BEDTIME #90 tabs 12/22/24 doxycycline monohydrate 100 mg 100 mg PO BID 14 days #28 caps 02/17/25 capsule Allergies Allergy/AdvReac Type Severity Reaction Status Date / Time No Known Allergies Allergy Verified 02/17/25 15:03 [No Known Allergies*] Review of Systems 2 Review of Systems: Yes all other systems are reviewed and are negative PMFSH Past Medical History Attestation statement: The following information was validated with the patient. Source: old records reviewed Medical History Pre-diabetes Hyperlipidemia Surgical History No significant past surgical history Social History Social History Housing: Other (pt refused to say ) Are you a primary child care teacher to a significant other at home: No Do you presently have visiting nurse or other home services: No Patient Tobacco Use Status: Never used Tobacco e-Cigarette/Vaping Use: Never Used Second Hand Smoke Exposure: No Current occupational status: retired Cognitive needs: No Hearing needs: No Vision needs: Yes Physical Exam ED Vital Signs: Vital Signs - 24 hr 02/18/25 01:53 02/18/25 01:54 Temperature 98.6 F 98.6 F Pulse Rate 76 76 Respiratory Rate 14 14 Blood Pressure 115/50 L 115/50 L Pulse Oximetry 96 96 Oxygen Delivery Method Room Air Room Air BMI result Body Mass Index 30.9 Appearance: Alert.?Oriented to person, place and time. No acute distress.?Normal affect. Eyes: Pupils equal, round and reactive to light.? ENT: Pharynx normal.?? Neck: Normal inspection.? Neck supple.?? CVS: Heart sounds normal. Normal heart rate and rhythm.? Pulses normal.?? Respiratory: No respiratory distress.? Lung sounds clear to auscultation bilaterally?? Abdomen: Soft and non-tender. Normoactive bowel sounds. No pulsatile mass.?? Skin: Skin warm and dry.? Normal skin color.? Right proximal medial thigh there is a scabbed lesion where he reports having removed the tick, 0.5 cm circumferential erythema that is blanchable Extremities: No lower extremity edema.? No calf ttp? Neuro: Moves all extremities spontaneously. Sensation intact bilaterally. CN II- XII intact. No focal neuro deficits. Ambulates with normal steady gait. Course Reevaluation(s) Reevaluation #1: Viral serologies are negative. Urinalysis is concentrated concerning for mild dehydration, notable glucosuria, however on serum labs he has a random glucose of 150, non elevated anion gap, does not appear consistent with DKA, not consistent with UTI. Serum labs indicating CBC reveals a new onset mild leukopenia and thrombocytopenia in addition to elevated LFTs which can be seen with tick-borne illnesses, although I did discuss with patient to early to detect Lyme disease serologies given the potential exposure being 1-2 weeks in the past. Electrolyte derangement. No RENE. Total bili 3.5, direct bili 0.6 with AST of 48, normal lipase. Hyperbilirubinemia has been seen on prior serologies as well, has benign abdominal examination, do not see indication for emergent radiographic imaging of the abdomen at time. Planning for treatment with doxycycline for early Lyme disease. At the time of anticipated discharge, he is noted to have soft BP 94/45, fatigue and nausea said he has not really been eating and drinking as much as he should. Patient will receive 1 L normal saline fluid, pending re-evaluation Time: 19:03 Reevaluation #2: Notified by nursing staff at this time that despite IV fluids patient with hypotension 87/32. Reviewed this case with my attending Dr. Miner. Will pursue radiographic imaging of the chest/abdomen. Obtaining blood cultures and lactic acid, will cover with IV doxycycline. Given hypotension, planning for sepsis fluid bolus, calculated based on ideal body weight secondary to obesity for a total of 1776 mL, he has already received 1 L thus far, will order for additional 1 L at this time. Patient signed out to Chad PITTS at this time Time: 20:49 Reevaluation #3: Patient's blood pressure improved. Patient's [address] abdominal CT sign negative for any acute infection. UA negative for UTI. Patient will be discharged with doxycycline and informed to follow up with primary care provider. Time: 01:40 Medications Administered Discontinued Medications Generic Name Dose Route Start Last Admin Trade Name Freq PRN Reason Stop Dose Admin Doxycycline Monohydrate 100 mg 02/17/25 15:25 02/17/25 17:43 Doxycycline Monohydrate 100 Mg Capsule PO 02/17/25 15:26 100 mg ONCE ONE Administration Sodium Chloride 1,000 mls @ 999 mls/hr 02/17/25 19:15 02/17/25 20:39 Ns IV 02/17/25 20:15 Infused .Q1H1M JEANNE Infusion Sodium Chloride 1,000 mls @ 999 mls/hr 02/17/25 21:00 02/17/25 22:21 Ns IV 02/17/25 22:00 Infused .Q1H1M JEANNE Infusion Doxycycline Hyclate 100 mg/ 250 mls @ 166.67 mls/hr 02/17/25 20:50 02/17/25 22:45 Sodium Chloride IV 02/17/25 22:19 Infused ONCE ONE Infusion Ibuprofen 600 mg 02/17/25 15:19 02/17/25 15:24 Ibuprofen 600 Mg Tablet PO 02/17/25 15:20 600 mg ONCE ONE Administration Iohexol 85 ml 02/17/25 21:52 02/17/25 21:53 Iohexol 350 Mg/Ml 100 Ml Infus..Btl IV 02/17/25 21:53 85 ml ONCE ONE Administration Medical Decision Making Medical Decision Making [facility] Narrative: Patient is a 74-year-old male with past medical history of pulmonary hypertension, diabetes, hyperlipidemia who presents emergency department for evaluation of 2 days with viral type symptoms as per HPI. He does admit to having a tick bite within the past 1-2 weeks that he self removed, the duration of attachment is unclear, he is not certain whether this was a deer tick. On evaluation of the bite location, there was a very mild surrounding erythema, not the classical erythema migraines that may be anticipated. However, his presenting symptoms are concerning for early localized Lyme disease. He does express a concern that there may be a possibility that this is this contracted from chicken farm, states he has felt this way once before which he attributed to them. He has some mild stomach upset and nausea but no vomiting, inability to tolerate oral intake, no diarrhea to suggest acute gastroenteritis. He arrives the emergency department febrile for which he received a dose of ibuprofen, given a dose of doxycycline. Plan to obtain EKG to check BÁRBARA, Lyme/tick panel is ordered in addition to CBC to evaluate for leukocytosis/ anemia, CMP and lipase to evaluate for abnormal electrolytes /abnormal renal function/ abnormal hepatic/biliary function, and Urinalysis. Differential Diagnosis Differential Diagnoses: The differential diagnosis associated with the presentation includes (See narrative above) Admission/Observation Consideration of admission/observation: Escalation of care including admission/observation considered Lab Data [facility] Lab Attestation statement: I reviewed the patient's lab results. 02/17/25 16:07 02/17/25 16:07 Labs: Lab Results 02/17/25 02/17/25 02/17/25 Range/Units 16:07 18:43 21:16 WBC 4.4 L (4.8-10.8) X10*3/uL RBC 5.32 (4.60-5.80) X10*6/uL Hgb 16.4 (14.0-18.0) g/dl Hct 46.1 (42.0-52.0) % MCV 86.7 (80.0-98.0) fL MCH 30.8 (27.0-33.0) pg MCHC 35.6 (31.0-36.0) g/dl RDW 12.8 (11.0-16.0) % Plt Count 94 L D (160-400) X10*3/uL MPV 10.0 (9.4-12.4) fL Immature Gran % (Auto) 0.2 (0.0-0.4) % Neut % (Auto) 82.5 H (45-73) % Lymph % (Auto) 5.4 L (20-40) % [place] % (Auto) 10.8 (2-11) % Eos % (Auto) 0.0 (0-4) % Baso % (Auto) 1.1 (0-2) % Lymph # (Auto) 0.2 L (1.2-4.9) X10*3/uL [place] # (Auto) 0.5 (0.1-1.2) X10*3/uL Eos # (Auto) 0.0 (0.0-0.4) X10*3/uL Baso # (Auto) 0.1 (0.0-0.2) X10*3/uL Abs Immat Gran (auto) 0.01 (0.00-0.03) X10*3/uL Absolute Neuts (auto) 3.7 (2.0-8.3) x10*3/uL Absolute Nucleated RBC 0.000 (0.0-0.012) X10*3/uL Nucleated RBC % (auto) 0.0 (0.0-0.2) /100WBC Smear Tech's Comments VERIFIED Sodium 135 (135-145) mmol/L Potassium 3.4 D (3.3-5.1) mmol/L Chloride 101 (96-108) mmol/L Carbon Dioxide 21 L (22-29) mmol/L Anion Gap 16 (12-20) BUN 22 H (9-16) mg/dL Creatinine 1.29 (0.5-1.4) mg/dL Estim Creat Clear Calc 49.9 Estimated GFR 55 Random Glucose 150 H (60-115) mg/dL Lactic Acid 1.3 (0.5-2.0) mmol/L Calcium 8.7 D (8.4-10.2) mg/dL Magnesium 2.1 (1.6-2.6) mg/dL Total Bilirubin 3.5 H (0.0-1.0) mg/dL Direct Bilirubin 0.6 H (0.0-0.5) mg/dL AST 48 H (5-37) U/L ALT 39 (0-40) U/L Alkaline Phosphatase 104 (39-117) U/L Troponin I High Sens 12.9 (<3.5-35.0) ng/L C-Reactive Protein 15.43 H (< or = 0.50) mg/dL Total Protein 7.4 (6.5-8.0) g/dL Albumin 3.9 (3.5-5.0) g/dL Lipase 24 (8-78) U/L TSH 4.73 H (0.32-4.0) uIU/mL Free T4 0.81 (0.71-1.85) ng/dL Urine Color Dark Yellow Urine Appearance Turbid Urine pH 5.0 (5.0-9.0) Ur Specific [place] >= 1.030 H (1.005-1.025) Urine Protein 100 (2+) H (Neg-Trace) mg/dL Urine Glucose (UA) >=1000 H (Negative) mg/dL Urine Ketones 15 (Negative) mg/dL Urine Blood Negative (Negative) Urine Nitrite Negative (Negative) Ur Leukocyte Esterase Negative (Negative) Urine RBC 0-2 (0-2) /HPF Urine WBC 0-5 (0-5) /HPF Ur Squamous Epith Cells >20 (0-2) /HPF Other Crystals Present Urine Bacteria None Seen (None Seen) Hyaline Casts 6-10 (0-2) /LPF Influenza Type A (PCR) NEGATIVE (Negative) Influenza Type B (PCR) NEGATIVE (Negative) RSV RNA Qual (PCR) NEGATIVE (Negative) SARS-CoV-2 RNA (RT-PCR) NEGATIVE (Negative) 02/18/25 Range/Units 00:51 WBC (4.8-10.8) X10*3/uL RBC (4.60-5.80) X10*6/uL Hgb (14.0-18.0) g/dl Hct (42.0-52.0) % MCV (80.0-98.0) fL MCH (27.0-33.0) pg MCHC (31.0-36.0) g/dl RDW (11.0-16.0) % Plt Count (160-400) X10*3/uL MPV (9.4-12.4) fL Immature Gran % (Auto) (0.0-0.4) % Neut % (Auto) (45-73) % Lymph % (Auto) (20-40) % [place] % (Auto) (2-11) % Eos % (Auto) (0-4) % Baso % (Auto) (0-2) % Lymph # (Auto) (1.2-4.9) X10*3/uL [place] # (Auto) (0.1-1.2) X10*3/uL Eos # (Auto) (0.0-0.4) X10*3/uL Baso # (Auto) (0.0-0.2) X10*3/uL Abs Immat Gran (auto) (0.00-0.03) X10*3/uL Absolute Neuts (auto) (2.0-8.3) x10*3/uL Absolute Nucleated RBC (0.0-0.012) X10*3/uL Nucleated RBC % (auto) (0.0-0.2) /100WBC Smear Tech's Comments Sodium (135-145) mmol/L Potassium (3.3-5.1) mmol/L Chloride (96-108) mmol/L Carbon Dioxide (22-29) mmol/L Anion Gap (12-20) BUN (9-16) mg/dL Creatinine (0.5-1.4) mg/dL Estim Creat Clear Calc Estimated GFR Random Glucose (60-115) mg/dL Lactic Acid (0.5-2.0) mmol/L Calcium (8.4-10.2) mg/dL Magnesium (1.6-2.6) mg/dL Total Bilirubin (0.0-1.0) mg/dL Direct Bilirubin (0.0-0.5) mg/dL AST (5-37) U/L ALT (0-40) U/L Alkaline Phosphatase (39-117) U/L Troponin I High Sens 11.4 (<3.5-35.0) ng/L C-Reactive Protein (< or = 0.50) mg/dL Total Protein (6.5-8.0) g/dL Albumin (3.5-5.0) g/dL Lipase (8-78) U/L TSH (0.32-4.0) uIU/mL Free T4 (0.71-1.85) ng/dL Urine Color Urine Appearance Urine pH (5.0-9.0) Ur Specific [place] (1.005-1.025) Urine Protein (Neg-Trace) mg/dL Urine Glucose (UA) (Negative) mg/dL Urine Ketones (Negative) mg/dL Urine Blood (Negative) Urine Nitrite (Negative) Ur Leukocyte Esterase (Negative) Urine RBC (0-2) /HPF Urine WBC (0-5) /HPF Ur Squamous Epith Cells (0-2) /HPF Other Crystals Urine Bacteria (None Seen) Hyaline Casts (0-2) /LPF Influenza Type A (PCR) (Negative) Influenza Type B (PCR) (Negative) RSV RNA Qual (PCR) (Negative) SARS-CoV-2 RNA (RT-PCR) (Negative) Independent Interpretation I performed an independent interpretation of an: EKG (Normal sinus rhythm, ventricular rate of 73, normal BÁRBARA; 128 MS, QTC 412 MS, no ST-elevation) Independent Historian Clinical information obtained from an independent historian. History obtained from or confirmed by: Spouse External Record Review External record reviewed: Outpatient record Chronic Conditions Patient?s care impacted by: Other (See narrative above) Critical Care Time Critical Care Time Critical Care Time: Yes Total Critical Care Time: 40 Attestation: I personally attest to this critical care time spent taking care of the patient exclusive of all other billable procedures was approximately 40 minutes including initial evaluation of patient, ordering tests, acute hypotension treatment, sepsis evaluation, EKG interpretation, medical consultation, documentation, re-evaluation. Discharge Plan Discharge Clinical Impression: Suspected Lyme disease Patient Disposition: Home, Self-Care Instructions: Lyme Disease (ED), Tick Bite (ED) Additional Instructions: As discussed, based on history and examination today, symptoms are most concerning for early Lyme disease. You received the 1st dose of doxycycline in the emergency department, and their meaning prescription for doxycycline has been sent to the pharmacy. Testing for tick-borne illnesses has been sent to the lab, these will not result today. You will receive a call from us within the next week with any positive testing results. However, as discussed, testing for Lyme disease before 4-6 weeks after exposure may result in a false negative. Regardless, we will treat you with a course of antibiotics accordingly. On doxycycline, do not take pills immediately before going to bed and swallow pills with plenty of water. Avoid direct sunlight as this can result in a bad rash/burn, iron, antacids, and Pepto Bismol. Call your provider if you develop new ringing in your ears, new problems hearing, dizziness, difficulty swallowing, rash, abdominal discomfort, nausea, or diarrhea.? Prescriptions: New doxycycline monohydrate 100 mg capsule 100 mg PO BID 14 Days Qty: 28 0RF No Action (DME) OneTouch Ultra Test Strip See Rx Instructions .Route Qty: 100 1RF Rx Instructions: Use to check fasting blood sugar and a random blood sugar daily (DME) lancets [OneTouch Delica Plus Lancet] 33 gauge [facility] See Rx Instructions .Route Qty: 100 1RF Rx Instructions: Use to check fasting blood sugar and a random blood sugar daily (DME) blood-glucose meter [OneTouch Ultra2 Meter] [facility] See Rx Instructions .Route Qty: 1 0RF Rx Instructions: Use to check fasting blood sugar and a random blood sugar daily atorvastatin 40 mg tablet 40 mg PO BEDTIME Qty: 90 1RF Jardiance 10 mg tablet 10 mg PO DAILY 30 Days Qty: 30 3RF Referrals: Kd Petersen FNP-NUHA [Primary Care Provider] - Interventions: ED Discharge Assessment Last Done: 02/18/25 01:54 Discharge Date/Time: 02/18/25 01:56 Print Language: Anguillan
--- NOTE | 2025-02-17 15:32 | ECG_ITS ---
Test Reason : PCS Blood Pressure : */* mmHG Vent. Rate : 73 BPM Atrial Rate : 73 BPM P-R Int : 128 ms QRS Dur : 76 ms QT Int : 374 ms P-R-T Axes : 2 -2 26 degrees QTcB Int : 412 ms Normal sinus rhythm Normal ECG No previous ECGs available Referred By: Katty Parekh Electronically Signed By: ROSITA HOPKINS
[2025-02-17 16:25] LABS: Basophils Absolute Auto 0.1 X10*3/uL (0.0-0.2); Basophils Percent Auto 1.1 % (0-2); Hematocrit 46.1 % (42.0-52.0); Hemoglobin 16.4 g/dl (14.0-18.0); Imm Gran Abs Auto 0.01 X10*3/uL (0.00-0.03); Imm Gran Pct Auto 0.2 % (0.0-0.4); Lymphocytes Absolute Auto 0.2 X10*3/uL (1.2-4.9); Lymphocytes Percent Auto 5.4 % (20-40); MANUAL DIFF FLAG SCAN; Mean Corpuscular HGB Conc 35.6 g/dl (31.0-36.0); Mean Corpuscular Hemoglobin 30.8 pg (27.0-33.0); Mean Corpuscular Volume 86.7 fL (80.0-98.0); Monocytes Absolute Auto 0.5 X10*3/uL (0.1-1.2); Monocytes Percent Auto 10.8 % (2-11); Neutrophils Absolute Auto 3.7 x10*3/uL (2.0-8.3); Neutrophils Percent Auto 82.5 % (45-73); PLT CLUMP 1; Red Blood Count 5.32 X10*6/uL (4.60-5.80); Red Cell Distribution Width 12.8 % (11.0-16.0); SCAN SMEAR FLAG 1
[2025-02-17 16:53] LABS: Alanine Aminotransferase 39 U/L (0-40); Albumin Level 3.9 g/dL (3.5-5.0); Alkaline Phosphatase 104 U/L (39-117); Anion Gap 16 (12-20); Aspartate Amino Transferase 48 U/L (5-37); Bilirubin Direct 0.6 mg/dL (0.0-0.5); Bilirubin Total 3.5 mg/dL (0.0-1.0); Blood Urea Nitrogen 22 mg/dL (9-16); Calcium 8.7 mg/dL (8.4-10.2); Carbon Dioxide 21 mmol/L (22-29); Chloride 101 mmol/L (96-108); Creatinine Clr Calc Pharmacy 49.9; Estimated Glomerular Filt Rate 55; Glucose Random 150 mg/dL (60-115); Lipase 24 U/L (8-78); Magnesium 2.1 mg/dL (1.6-2.6); Potassium 3.4 mmol/L (3.3-5.1); Sodium 135 mmol/L (135-145); Total Protein 7.4 g/dL (6.5-8.0)
[2025-02-17 16:57] LABS: White Blood Count 4.4 X10*3/uL (4.8-10.8)
[2025-02-17 16:58] LABS: Platelet Count 94 X10*3/uL (160-400); SLIDE REVIEW VERIFIED
[2025-02-17 17:02] LABS: Influenza A PCR NEGATIVE (Negative); Influenza B PCR NEGATIVE (Negative); Resp Syncy Virus RNA Qual PCR NEGATIVE (Negative); SARS COV2 PCR INHOUSE NEGATIVE (Negative)
[2025-02-17 17:05] LABS: TSH reflex Free T4 4.73 uIU/mL (0.32-4.0)
[2025-02-17] MEDS: Doxycycline Monohydrate 100 MG CAPSULE PO (17:43)
[2025-02-17 17:51] LABS: Free T4 (Free Thyroxine) 0.81 ng/dL (0.71-1.85)
[2025-02-17 18:51] LABS: Appearance Urine Turbid; Color Urine Dark Yellow; Glucose Urine UA >=1000 mg/dL (Negative); Leukocyte Esterase Urine Negative (Negative); Nitrite Urine Negative (Negative); Specific Gravity - Urine >= 1.030 (1.005-1.025); UMIC TRIGGER UACC YES; Urine Blood Negative (Negative); Urine Ketones 15 mg/dL (Negative); Urine Protein 100 (2+) mg/dL (Neg-Trace)
[2025-02-17 19:04] LABS: Bacteria Urine None Seen (None Seen); Other Crystals Urine Present; RBC Urine 0-2 /HPF (0-2); Squamous Epithelial Cell Urine >20 /HPF (0-2); WBC Urine 0-5 /HPF (0-5)
[2025-02-17] MEDS: 0.9 % Sodium Chloride 1,000 ML 999 ML IV ×2 (19:42→20:55)
[2025-02-17 20:59] LABS: C Reactive Protein 15.43 mg/dL (< or = 0.50)
[2025-02-17 21:03] LABS: Troponin-I High Sensitivity 12.9 ng/L (<3.5-35.0)
[2025-02-17] MEDS: Doxycycline Hyclate 100 MG in 0.9 % Sodium Chloride 250 ML 166.67 MG IV (21:17)
[2025-02-17 21:40] LABS: Lactic Acid 1.3 mmol/L (0.5-2.0)
[2025-02-17] MEDS: iohexoL 350 MG/ML 100 ML INFUS..BTL 85 ML IV (21:53)
[2025-02-18] VITALS: BP 108/54; PULSE 75; RESP 16; TEMP 37.4; O2SAT 96
[2025-02-18 01:20] LABS: Troponin-I High Sensitivity 11.4 ng/L (<3.5-35.0)
[2025-02-18 01:53] VITALS: BP 115/50; PULSE 76; RESP 14; TEMP 37; O2SAT 96
[2025-02-18 01:54] VITALS: BP 115/50; PULSE 76; RESP 14; TEMP 37; O2SAT 96
[2025-02-20 06:08] LABS: Lyme Abs Screen <0.90 index
[2025-02-23 18:13] LABS: Babesia IgG <1:64 titer (<1:64); Babesia IgM <1:20 titer (<1:20)
[2025-03-04 19:59] LABS: A. Phagocytophilum Ab IgG <1:64 (<1:64); A. Phagocytophilum Ab IgM <1:20 (<1:20); E. Chaffeensis Ab IgG <1:64 (<1:64); E. Chaffeensis Ab IgM <1:20 (<1:20)
== END 2025-02-18 01:56 | disposition home or self-care (01) ==
PROVIDERS: Nurse Practitioner Family; Physician Assistant; Physician Assistant Medical; Emergency Provider Emergency Medicine; PCP Nurse Practitioner Family
DX: S70.361A Insect bite (nonvenomous), right thigh, initial encounter (principal); W57.XXXA Bitten or stung by nonvenomous insect and other nonvenomous arthropods, initial encounter; I95.9 Hypotension, unspecified; E11.9 Type 2 diabetes mellitus without complications; E78.5 Hyperlipidemia, unspecified; Z03.818 Encounter for observation for suspected exposure to other biological agents ruled out; Y93.9 Activity, unspecified; Y92.89 Other specified places as the place of occurrence of the external cause; Y99.9 Unspecified external cause status; Z79.02 Long term (current) use of antithrombotics/antiplatelets; Z79.899 Other long term (current) drug therapy
CPT/HCPCS: 0241U; 36415; 71260; 74177; 80048; 80076; 81001; 83605; 83690; 83735; 84439; 84443; 84484; 85025; 86140; 86617; 86618; 86666; 86753; 87040; 93005; 96361; 96374; 99284; 99285; J1271; Q9967

== ENCOUNTER → 2025-02-17 15:32 | Outpatient (BNV) | payer MEDICARE, OTHER, SELFPAY | PROVIDERS: Emergency Provider Emergency Medicine; PCP Nurse Practitioner Family; Visit Provider Internal Medicine | DX: Z13.6 Encounter for screening for cardiovascular disorders (principal) | CPT/HCPCS: 93010 ==

== ENCOUNTER → 2025-02-17 20:48 | Outpatient (BNV) | payer MEDICARE, OTHER, SELFPAY | PROVIDERS: Emergency Provider Emergency Medicine; PCP Nurse Practitioner Family; Visit Provider Radiology Diagnostic Radiology | DX: K52.9 Noninfective gastroenteritis and colitis, unspecified (principal); R50.9 Fever, unspecified | CPT/HCPCS: 71260; 74177 ==

== ENCOUNTER 2025-03-07 08:03 | Outpatient (REF) | payer MEDICARE, OTHER, SELFPAY ==
[2025-03-07 08:16] LABS: MANUAL DIFF FLAG NO
[2025-03-07 08:28] LABS: Basophils Absolute Auto 0.1 X10*3/uL (0.0-0.2); Basophils Percent Auto 1.8 % (0-2); Eosinophils Absolute Auto 0.2 X10*3/uL (0.0-0.4); Eosinophils Percent Auto 4.8 % (0-4); Hematocrit 40.8 % (42.0-52.0); Hemoglobin 13.7 g/dl (14.0-18.0); Imm Gran Abs Auto 0.01 X10*3/uL (0.00-0.03); Imm Gran Pct Auto 0.2 % (0.0-0.4); Lymphocytes Absolute Auto 1.5 X10*3/uL (1.2-4.9); Lymphocytes Percent Auto 30.2 % (20-40); Mean Corpuscular HGB Conc 33.6 g/dl (31.0-36.0); Mean Corpuscular Hemoglobin 30.4 pg (27.0-33.0); Mean Corpuscular Volume 90.5 fL (80.0-98.0); Mean Platelet Volume 10.1 fL (9.4-12.4); Monocytes Absolute Auto 0.5 X10*3/uL (0.1-1.2); Monocytes Percent Auto 9.9 % (2-11); Neutrophils Absolute Auto 2.7 x10*3/uL (2.0-8.3); Neutrophils Percent Auto 53.1 % (45-73); Platelet Count 206 X10*3/uL (160-400); Red Blood Count 4.51 X10*6/uL (4.60-5.80)
[2025-03-07 08:33] LABS: Appearance Urine Clear; Color Urine Yellow; Glucose Urine UA Negative (Negative); Leukocyte Esterase Urine Negative (Negative); Nitrite Urine Negative (Negative); PH 5.5 (5.0-9.0); Urine Blood Negative (Negative); Urine Ketones Negative (Negative); Urine Protein Negative (Neg-Trace)
[2025-03-07 09:09] LABS: Alanine Aminotransferase 21 U/L (0-40); Albumin Level 3.7 g/dL (3.5-5.0); Alkaline Phosphatase 104 U/L (39-117); Anion Gap 11 (12-20); Aspartate Amino Transferase 20 U/L (5-37); Blood Urea Nitrogen 17 mg/dL (9-16); Calcium 8.5 mg/dL (8.4-10.2); Carbon Dioxide 28 mmol/L (22-29); Chloride 107 mmol/L (96-108); Cholesterol 145 mg/dL (<200); Estimated Glomerular Filt Rate > 60; Glucose Fasting 167 mg/dL (60-99); HDL Cholesterol 45 mg/dL (>40); LDL Cholesterol Calculated 85 mg/dL (<100); Potassium 4.2 mmol/L (3.3-5.1); Sodium 142 mmol/L (135-145); Total Protein 6.8 g/dL (6.5-8.0); Triglycerides 77 mg/dL (<150)
[2025-03-07 09:23] LABS: Prostate Specific Antigen Scr 1.45 ng/mL (<0.05-4.0); TSH reflex Free T4 7.52 uIU/mL (0.32-4.0)
[2025-03-07 10:44] LABS: Free T4 (Free Thyroxine) 0.88 ng/dL (0.71-1.85)
[2025-03-08 21:33] LABS: Thyroid Peroxidase Antibodies 745 IU/mL (<9)
== END 2025-03-07 08:04 | disposition home or self-care (01) ==
LOC: HO.LAB 08:03
PROVIDERS: PCP Nurse Practitioner Family; Visit Provider Nurse Practitioner Family
DX: Z00.00 Encounter for general adult medical examination without abnormal findings (principal); R79.89 Other specified abnormal findings of blood chemistry; E11.9 Type 2 diabetes mellitus without complications; Z12.5 Encounter for screening for malignant neoplasm of prostate
CPT/HCPCS: 36415; 80053; 80061; 81003; 84153; 84439; 84443; 85025; 86376

== ENCOUNTER 2025-03-08 07:54 | Outpatient (AMB) | payer MEDICARE, OTHER, SELFPAY ==
--- OUTSIDE RECORDS SUMMARY | 2025-03-08 07:57 | XMS_ITS | Patient Health Record ---
Author Organization [facility] Address [address] [place] [address] Care Team Providers Care Run Lead Name Role Phone Kaushik CARR, Jonatan Primary Care Provider Unavailab Brant Broussard Jr Unavailable [phone] Reason For Referral No Information Medications Medication SIG (Take, Route, Frequency, Duration) Notes Start Date End Date Status MiraLax (colon prep) 8.3 ounce ((238) grams mixed with Gatorade or Crystal Light orally begin at 5:00 p.m. the day before the procedure for 1 day 08/19/2020 Active Magnesium Active Vitamin C Active Vitamin D Active Simvastatin Active Immunizations Vaccine Route Administration Date Status Comme nts Influenza Unknown 08/19/2020 Refused Social History Tobacco Use: Social History Observation Description Date Details (start date - stop date) Never Smoker NA - NA Tobacco Use/Smoking Question Answer Notes Patient is a nonsmoker Alcohol Screen Question Answer Notes Did you have a drink containing alcohol in the p ast year? No Points 0 Interpretation Negative Plan Of Treatment Future Test Test Name Order Date COLONOSCOPY 08/19/2020 Insurance Providers Payer Name Payer Address Payer Phone Subscriber Number Group Number Insured Name Patient Relationship to Insured Coverage Start Date Coverage End Date MEDICARE OF [place] [address] [place] [address] [id number] GEETHA FARLEY Self - patient is the insured [facility] [employer]ITY [address] [place] [address] [id number] GEETHA FARLEY Self - patient is the insured Medical (General) History Medical History History ICD Code hyperlipidemia Surgical History Surgery Date(Month/Year)
--- NOTE | 2025-03-08 08:09 | A.OFFPC_ITS ---
Vital Signs 03/08/25 08:11 Height 5 ft 4 in BP 110/60 Blood Pressure Location Lt brachial Position Sitting Pulse 62 Pulse Source Pulse Oximeter Pulse Oximetry (%) 96 Oxygen Delivery Method Room Air Comment PATIENT DECLINED WEIGHT TODAY 03/08/25 Intake Visit Reasons: 3m follow up Speck Dyer Required: No Accompanied by: Self / Same As Patient Allergies No Known Allergies [No Known Allergies*] Allergy (Verified 03/08/25 08:47) Medication List - Last Reconciled 03/08/25 by RADHA Houston atorvastatin 40 mg PO BEDTIME blood sugar diagnostic ([facility] [employer] Ultra Test strips) Use to check fasting blood sugar and a random blood sugar daily blood-glucose meter ([facility] [employer] Ultra2 Meter) Use to check fasting blood sugar and a random blood sugar daily empagliflozin (Jardiance) 10 mg PO DAILY 30 days lancets ([employer] Delica Plus Lancet) Use to check fasting blood sugar and a random blood sugar daily Tobacco use date assessed: 12/04/24 Fall risk assessment: No Falls in past year Last assessed Fall Risk: 03/08/25 Dental Screening Dental Screen Date: 12/04/24 HPI 3m follow up HPI Details Chief Complaint Here for follow-up on my diabetes and concerns about bilirubin levels. History of Present Illness The patient is a 74-year-old male presenting for follow-up of diabetes management and monitoring of elevated bilirubin levels. His diabetes has shown improvement with a current HbA1c of 7.4, achieved solely through dietary measures without the recent intake of his prescribed Jardiance 10 mg. The patient expressed willingness to possibly resume this medication soon. He denies any symptoms commonly associated with diabetes complications such as neuropathy and reports maintained sensation in his feet. In addition to diabetes, there is an ongoing issue of elevated bilirubin, which has not presented with abdominal pain or abnormalities on recent imaging studies. Hemolysis labs have been suggested to explore the cause of slight anemia identified in recent tests. Discussion about the possibility of Terrance's Thyroiditis is underway, pending relevant peroxidase testing. The patient currently chooses not to initiate any a dditional medication therapy currently, though we will cont to explore this in the future. Social History - No details available regarding social, family, or exercise habits. Health Maintenance - Discussion about diabetes management t hrough diet. - Monitoring of bilirubin levels suggest ed. - Consideration of hemolysis labs for an emia. - Continued monitoring of thyroid functi on with attention to possible Terrance's Thyroiditis. Review of Systems - Gastrointestinal: Denies abdominal andressa n, diarrhea, constipation. - Endocrine: Denies neuropathy, polyuria , polydipsia. - Respiratory: Denies shortness of breat h. - Cardiovascular: Denies chest pain. - Constitutional: Denies fevers, chills. Physical Exam General: Cooperative, healthy appearing, comfortable, no acute distress and well developed Orientation: Patient oriented x3 Limitations: No limitations Head: Normal to inspection Ears: Hearing grossly normal bilaterally Nose: Normal external nose present Face and sinus: Normal facial exam Eyes: Appearance normal, both eyes and all related structures, arcus senilis noted bilat Neck: Normal visual inspection and Yes full ROM Respiratory: Lungs were fairly clear bilaterally Cardiovascular: Bradycardic, S1 S2 GI: Normal to inspection. Soft to palpation and nontender Skin: No rashes or lesions noted Neuro: Patient oriented x3 Extremities: Feet were intact bilaterally, positive sensation with use of monofilament to feet, does have flat feet bilaterally Results - Labs: HbA1c of 7.4, slight anemia note d. - Imaging: Recent CT scan with no gallbl adder or liver abnormalities. Plan Management of diabetes will continue, with consideration for the potential return to Jardiance 10 mg. We will examine bilirubin levels and address slight anemia with planned hemolysis labs. His thyroid function will be monitored closely for potential Terrance's Thyroiditis. Follow-up labs will be scheduled in two months, with an appointment in three to four months. Discussion Notes During this visit, I discussed the significant improvement in diabetes control solely through dietary measures, with an HbA1c of 7.4. We considered the return to Jardiance 10 mg if deemed necessary. I explained the ongoing monitoring of elevated bilirubin and potential thyroid concerns, specifically the exploration of Terrance?s Thyroiditis, pending antibody results. We agreed on performing additional hemolysis labs to investigate anemia. I will schedule a follow-up for further discussion in three to four months, with lab evaluations planned within two months to ensure appropriate management and progression monitoring. Patient Instructions - Continue current dietary regimen for d iabetes management. - Monitor blood sugar levels regularly. - Report any new symptoms such as abnorm al bleeding or bruising. - Follow up for labs in two months and a ppointments in three to four months. - Consider discussing the possibility of restarting Jardiance with me in the future. [facility] Medical History Pre-diabetes Hyperlipidemia Surgical History No significant past surgical history Social History Housing: Other (pt refused to say ) Are you a primary summer child caregiver to a significant other at home: No Do you presently have visiting nurse or other home services: No Patient Tobacco Use Status: Never used Tobacco e-Cigarette/Vaping Use: Never Used Second Hand Smoke Exposure: No Current occupational status: retired Cognitive needs: No Hearing needs: No Vision needs: Yes Questionnaire PHQ-9 Over the last 2 weeks, how often have you been bothered by any of the following problems? 44034 - PHQ-9 Billing: Patient declined-do not bill Source: Developed by Drs. Kerwin Orta, Katherine Beaver, Walter Mancia and colleagues, with an educational nathan from [employer]. Thrive Questionnaire Date Thrive assessed: 03/08/25 I am a: Patient What is your living situation today?: I choose not to answer this question Within the past 12 months, did the food you bought not last and you didn't have the money to get more?: I choose not to answer this question Within the past 12 months, did you worry whether your food would run out before you got money to buy more?: I choose not to answer this question Do you have trouble paying for medicines?: I choose not to answer this question Do you have trouble getting transportation to medical appointments?: I choose not to answer this question Do you have trouble paying your heating and electricity bill?: I choose not to answer this question Do you have trouble taking care of your child, family member or friend?: I choose not to answer this question Do you have trouble with day-to-day activities such as bathing, preparing meals, shopping, managing finances, etc.?: I choose not to answer this question Are you currently unemployed and looking for a job?: I choose not to answer this question Are you interested in more education?: I choose not to answer this question Currently or been in a relationship where the following occur: I choose not to answer THRIVE Score: 0 AUDIT C Alcohol Use Questionnaire (AUDIT-C) 1. How often do you have a drink containing alcohol?: Never 3. How often do you have six or more drinks on one occasion?: Never Total Score: 0 Score Reviewed/Action Taken: Yes SALAZAR-7 AMB Questionnaire SALAZAR-7 Date SALAZAR - 7 assessed: 03/08/25 (patient declined ) Source: Developed by Drs. Kerwin Orta, Katherine Beaver, Walter Mancia and colleagues, with an educational nathan from [employer]. Physical exam (Primary Care) Vital Signs: Last Vital Signs Pulse 62 03/08/25 08:11 BP 110/60 03/08/25 08:11 Pulse Ox 96 03/08/25 08:11 Oxygen Delivery Method Room Air 03/08/25 08:11 Tobacco/Smoking Status: Tobacco use Status Tobacco use date assessed 12/04/24 03/08/25 08:10 Patient Tobacco Use Status Never used Tobacco 03/08/25 08:10 e-Cigarette/Vaping Use Never Used 03/08/25 08:10 Thrive Assessment: Date of Thrive Assessment Date Thrive assessed 03/08/25 03/08/25 08:31 Currently or been in a relationship where the following occur: I choose not to answer Results AMB Hemoglobin A1c AMB Hemoglobin A1c 7.4 % Last Edit by Yosef Nunn CMA on 03/08/25 08: 28 Results Reviewed Results Reviewed: Laboratory Last Values Hgb A1c (Clinic) 7.4 % (4.0-6.0) H 03/08/25 08:27 Coding Level of Care Code Est Pt Level 4 (53704) Diagnoses Elevated bilirubin R17 Elevated TSH R79.89 Bradycardia R00.1 Diabetes E11.9 Assessment & Plan Assessment & Plan (1) Elevated bilirubin: Code(s): R17 - Unspecified jaundice Category: Medical (2) Elevated TSH: Code(s): R79.89 - Other specified abnormal findings of blood chemistry Category: Medical (3) Bradycardia: Code(s): R00.1 - Bradycardia, unspecified Category: Medical (4) Diabetes: Code(s): E11.9 - Type 2 diabetes mellitus without complications Category: Medical Plan . Orders: Orders AMB Hemoglobin A1c Today Z13.9 - Encounter for screening, unspecified
[2025-03-08 08:11] VITALS: BP 110/60; PULSE 62; O2SAT 96
== END 2025-03-08 08:47 | disposition home or self-care (01) ==
LOC: HO.HMCC 07:55
PROVIDERS: PCP Nurse Practitioner Family; Visit Provider Nurse Practitioner Family
DX: R17 Unspecified jaundice (principal); R79.89 Other specified abnormal findings of blood chemistry; R00.1 Bradycardia, unspecified; E11.9 Type 2 diabetes mellitus without complications; Z13.9 Encounter for screening, unspecified

== ENCOUNTER → 2025-03-08 07:54 | Outpatient (BNVA) | payer MEDICARE, OTHER, SELFPAY | PROVIDERS: PCP Nurse Practitioner Family; Visit Provider Nurse Practitioner Family | DX: R17 Unspecified jaundice (principal); R79.89 Other specified abnormal findings of blood chemistry; R00.1 Bradycardia, unspecified; E11.9 Type 2 diabetes mellitus without complications | CPT/HCPCS: 83036; 99212 ==

== ENCOUNTER 2025-09-17 07:46 | Outpatient (REF) | payer MEDICARE, OTHER, SELFPAY ==
--- OUTSIDE RECORDS SUMMARY | 2025-09-17 07:49 | XMS_ITS | Patient Health Record ---
Author Organization [facility] Address [address] [place] [address] Care Team Providers Care Dental Patient Coordinator Name Role Phone Kaushik (RETIRED) Jonatan CARR Primary Care Provider Unavailable Brant Ruiz Jr Unavailable Reason For Referral No Information Medications Medication SIG (Take, Route, Frequency, Duration) Notes Start Date End Date Status MiraLax (colon prep) 8.3 ounce ((238) grams mixed with Gatorade or Crystal Light orally begin at 5:00 p.m. the day before the procedure; Duration: 1 day 08/19/2020 Active Magnesium Active Vitamin C Active Vitamin D Active Simvastatin Active Immunizations Vaccine Route Administration Date Status Comme nts Influenza Unknown 08/19/2020 Refused Social History Tobacco Use: Social History Observation Description Date Details (start date - stop date) Never Smoker NA - NA Social History Drugs/Alcohol: Social Info Question Answer Notes Alcohol Screen Did you have a drink containing alcohol in the past year? No Points 0 Interpretation Negative Tobacco Use: Social Info Question Answer Notes Tobacco Use/Smoking Patient is a nonsmoker Additional Details Category Social Info Options Details Miscellaneous: Marital status: Occupation: retired Encounters Encounter Location Date Provider Diagnosis [facility] [address] [place] [id number] 03/08/2025 Brant Ruiz Jr Plan Of Treatment Future Test Test Name Order Date COLONOSCOPY 08/19/2020 Insurance Providers Payer Name Payer Address Payer Phone Subscriber Number Group Number Insured Name Patient Relationship to Insured Coverage Start Date Coverage End Date [facility] [address] [place] [address] [id number] GEETHA FARLEY Self - patient is the insured [facility] [address] [place] [address] [id number] GEETHA FARLEY Self - patient is the insured Medical (General) History Medical History History ICD Code hyperlipidemia Surgical History Surgery Date(Month/Year)
[2025-09-17 08:05] LABS: MANUAL DIFF FLAG NO
[2025-09-17 08:41] LABS: Hematocrit 46.7 % (42.0-52.0); Hemoglobin 15.4 g/dl (14.0-18.0); Imm Gran Abs Auto 0.03 X10*3/uL (0.00-0.03); Imm Gran Pct Auto 0.4 % (0.0-0.4); Lymphocytes Absolute Auto 1.7 X10*3/uL (1.2-4.9); Mean Corpuscular HGB Conc 33.0 g/dl (31.0-36.0); Mean Corpuscular Hemoglobin 29.8 pg (27.0-33.0); Mean Corpuscular Volume 90.3 fL (80.0-98.0); NRBC Abs Auto 0.000 X10*3/uL (0.0-0.012); NRBC Pct Auto 0.0 /100WBC (0.0-0.2); Platelet Count 207 X10*3/uL (160-400); Red Blood Count 5.17 X10*6/uL (4.60-5.80); Reticulocytes Absolute 0.076 X10*6/uL (0.026-0.095); White Blood Count 7.2 X10*3/uL (4.8-10.8)
[2025-09-17 09:06] LABS: Appearance Urine Cloudy; Glucose Urine UA >=1000 mg/dL (Negative); PH 5.0 (5.0-9.0); Specific Gravity - Urine 1.020 (1.005-1.025); UMIC TRIGGER UACC YES
[2025-09-17 09:32] LABS: Alanine Aminotransferase 16 U/L (0-40); Albumin Level 4.2 g/dL (3.5-5.0); Alkaline Phosphatase 116 U/L (39-117); Anion Gap 12 (12-20); Aspartate Amino Transferase 23 U/L (5-37); Blood Urea Nitrogen 20 mg/dL (9-16); Calcium 9.1 mg/dL (8.4-10.2); Carbon Dioxide 25 mmol/L (22-29); Chloride 107 mmol/L (96-108); Estimated Glomerular Filt Rate > 60; Potassium 4.0 mmol/L (3.3-5.1); Sodium 140 mmol/L (135-145); Total Protein 7.1 g/dL (6.5-8.0)
[2025-09-17 10:25] LABS: Free T4 (Free Thyroxine) 0.90 ng/dL (0.71-1.85)
== END 2025-09-17 07:47 | disposition home or self-care (01) ==
LOC: HO.LAB 07:46
PROVIDERS: PCP Nurse Practitioner Family; Visit Provider Nurse Practitioner Family
DX: Z00.00 Encounter for general adult medical examination without abnormal findings (principal); E11.9 Type 2 diabetes mellitus without complications; R17 Unspecified jaundice
CPT/HCPCS: 36415; 80053; 81001; 81003; 82248; 83010; 83615; 84439; 84443; 85025; 85045; 86381

== ENCOUNTER 2025-09-19 09:59 | Outpatient (AMB) | payer MEDICARE, OTHER, SELFPAY ==
[2025-09-19 10:10] VITALS: BP 118/68; PULSE 67; RESP 16; O2SAT 96
--- NOTE | 2025-09-19 10:10 | MHC.PC.OV ---
Vital Signs 09/19/25 10:10 Height 5 ft 4 in BP 118/68 Blood Pressure Location Lt brachial Position Sitting Respiration 16 Pulse 67 Pulse Source Pulse Oximeter Pulse Oximetry (%) 96 Oxygen Delivery Method Room Air Comment pt declined weight check Intake Visit Reasons: 3m f/u Certified Registered Locksmith Required: No Accompanied by: Self / Same As Patient Allergies No Known Allergies (No Known Allergies*) Allergy (Verified 09/19/25 10:22) Tobacco use date assessed: 09/19/25 Fall risk assessment: No Falls in past year Last assessed Fall Risk: 09/19/25 Dental Screening Dental Screen Date: 09/19/25 Did you have a dental visit in the last 12 months?: No Did you have a dental problem in the last 6 months where you did not have access to dental care?: No Was dental information given to patient?: Patient declined HPI 3m f/u HPI Details Chief Complaint The patient presents for follow-up for diabetes. History of Present Illness The patient is a 75 year old individual presenting for a follow-up visit for diabetes. The patient's HbA1c is 7.3%. The patient denies any chest pain, shortness of breath, neuropathy, or fever. Recent lab results showed an elevated bilirubin, with the direct bilirubin up by a tenth of a point. A CT scan of the abdomen and pelvis in February was negative for any acute findings. A referral to gastroenterology was made in the past, but the patient was not interested at the time but is now agreeable to a workup. The patient denies any abdominal pain, blood in stool, constipation, or diarrhea. The patient's TSH is 9.69, indicating abnormal thyroid function. The patient denies any signs or symptoms of hypothyroidism. Social History Health Maintenance - Diabetes management: The patient is undergoing routine follow-up for diabetes with an A1c of 7.3%. - Thyroid monitoring: A TSH level will be repeated in approximately two months following initiation of levothyroxine. Review of Systems - Constitutional: Denies fever. - Cardiovascular: Denies chest pain. - Respiratory: Denies shortness of breath. - Gastrointestinal: Denies abdominal pain, blood in stool, constipation, and diarrhea. - Neurological: Denies neuropathy. - Endocrine: Denies signs and symptoms of hypothyroidism. Physical Exam General: Cooperative, healthy appearing, comfortable, no acute distress and well developed, obese Orientation: Patient oriented x3 Limitations: No limitations Head: Normal to inspection Ears: Hearing grossly normal bilaterally Nose: Normal external nose present Face and sinus: Normal facial exam Eyes: Appearance normal, both eyes and all related structures Neck: Normal visual inspection and Yes full ROM Respiratory: Normal respiratory effort and able to speak in complete sentences. Clear to auscultation bilaterally Cardiovascular: Regular rate and rhythm. Normal S1 and S2 GI: Normal to inspection. Soft to palpation and nontender Skin: No rashes or lesions noted Neuro: Patient oriented x3 Extremities: Normal to inspection Results - Labs: - HbA1c: 7.3%. - Bilirubin: Elevated. - Direct bilirubin: Elevated by 0.1. - TSH: 9.69. - Imaging: - CT Abdomen/Pelvis (February): Negative for any acute findings. Plan 1. Diabetes Mellitus The patient's A1c is at 7.3%. No changes will be made to the current management at this time. 2. Hyperbilirubinemia Recent labs showed an elevated bilirubin, with the direct bilirubin up by 0.1, raising suspicion for Gilbert's syndrome. A CT of the abdomen and pelvis from February was negative for acute findings. The patient has now agreed to a gastroenterology workup, and a referral will be placed to Dr. Ruiz. 3. Hypothyroidism The patient's TSH is 9.69. Despite denying symptoms, the patient is willing to start treatment. Will prescribe levothyroxine 25 mcg and recheck TSH in approximately two months. 4. Obesity The patient is obese. The patient is noted to be doing well otherwise. Discussion Notes I discussed with the patient that their diabetes is stable with an A1c of 7.3%, and no medication changes are needed at this time. We reviewed the elevated bilirubin levels and my suspicion for Gilbert's syndrome; the patient agreed to a referral to gastroenterology for further evaluation, which they had previously declined. I also explained that recent labs show hypothyroidism with a TSH of 9.69, and despite the absence of symptoms, the patient agreed to start a low dose of levothyroxine 25 mcg. We will recheck the TSH level in about two months to assess the treatment response. Patient Instructions - Continue your current diabetes medications as prescribed. No changes are being made at this time. - A referral will be made for you to see a fraud manager (a specialist for digestive issues) to investigate your elevated bilirubin levels. - Start taking levothyroxine 25 mcg once daily for your underactive thyroid. - You will need to have a follow-up blood test in about two months to check your thyroid levels. [facility] Medical History Pre-diabetes Hyperlipidemia Surgical History No significant past surgical history Social History Housing: Other (pt refused to say ) Are you a primary caregiver assisted living to a significant other at home: No Do you presently have visiting nurse or other home services: No Patient Tobacco Use Status: Never used Tobacco e-Cigarette/Vaping Use: Never Used Second Hand Smoke Exposure: No Current occupational status: retired Cognitive needs: No Hearing needs: No Vision needs: Yes Questionnaire PHQ-9 Over the last 2 weeks, how often have you been bothered by any of the following problems? 1. Little interest or pleasure in doing things: not at all 2. Feeling down, depressed, or hopeless: not at all 4. Feeling tired or having little energy: not at all 5. Poor appetite or overeating: not at all 6. Feeling bad about yourself - or that you are a failure or have let yourself or your family down: not at all 7. Trouble concentrating on things, such as reading the newspaper or watching television: not at all 8. Moving or speaking so slowly that other people could have noticed. Or the opposite - being so fidgety or restless that you have been moving around a lot more than usual: not at all 9. Thoughts that you would be better off or of hurting yourself in some way: not at all Depression Screening Interpretation: Negative Depression Screening Done: Yes 56680 - PHQ-9 Billing: Yes Source: Developed by Drs. Kerwin Orta, Katherine Beaver, Walter Mancia and colleagues, with an educational nathan from [employer]. Thrive Questionnaire Date Thrive assessed: 03/08/25 SALAZAR-7 AMB Questionnaire SALAZAR-7 Date SALAZAR - 7 assessed: 09/19/25 (patient declined ) Feeling nervous, anxious, or on edge: 0 = Not at all Not being able to stop or control worryin = Not at all Worrying too much about different things: 0 = Not at all Trouble relaxin = Not at all Being so restless that it is hard to sit still: 0 = Not at all Becoming easily annoyed or irritable: 0 = Not at all Feeling afraid as if something awful might happen: 0 = Not at all Total SALAZAR-7 score (0-4 normal; 5-9 mild; 10-14 moderate; 15-21 severe): 0 Source: Developed by Drs. Kerwin Orta, Katherine Beaver, Walter Mancia and colleagues, with an educational nathan from [employer]. SALAZAR-7 Assessment Billing SALAZAR-7 Assessment Tool: SALAZAR-7 Assessment 63087 Physical exam (Primary Care) Vital Signs: Last Vital Signs Pulse 67 09/19/25 10:10 Resp 16 09/19/25 10:10 BP 118/68 09/19/25 10:10 Pulse Ox 96 09/19/25 10:10 Oxygen Delivery Method Room Air 09/19/25 10:10 Tobacco/Smoking Status: Tobacco use Status Tobacco use date assessed 09/19/25 09/19/25 10:18 Patient Tobacco Use Status Never used Tobacco 09/19/25 10:10 e-Cigarette/Vaping Use Never Used 09/19/25 10:10 Depression Screening Interpretation: Negative Thrive Assessment: Date of Thrive Assessment Date Thrive assessed 03/08/25 09/19/25 10:10 Results AMB Hemoglobin A1c AMB Hemoglobin A1c 7.3 % Last Edit by Soraya Taylor MA on 09/19/25 10:26 Results Reviewed Results Reviewed: Laboratory Last Values Hgb A1c (Clinic) 7.3 % (4.0-6.0) H 09/19/25 10:22 Coding Level of Care Code Est Pt Level 3 (93756) Diagnoses Elevated bilirubin R17 Screening for colon cancer Z12.11 Elevated TSH R79.89 Diabetes E11.9 Additional Codes SALAZAR-7 Assessment Billing - SALAZAR-7 Assessment Tool: SALAZAR-7 Assessment 69671 ([id number]) PHQ-9 - 81931 - PHQ-9 Billing: Yes ([id number]) Assessment & Plan Assessment & Plan (1) Elevated bilirubin: Code(s): R17 - Unspecified jaundice Category: Medical (2) Screening for colon cancer: Code(s): Z12.11 - Encounter for screening for malignant neoplasm of colon Category: Medical (3) Elevated TSH: Code(s): R79.89 - Other specified abnormal findings of blood chemistry Category: Medical (4) Diabetes: Code(s): E11.9 - Type 2 diabetes mellitus without complications Category: Medical Plan . Orders: Orders Bilirubin Total 2 Months R17 - Unspecified jaundice Bilirubin Direct 2 Months R17 - Unspecified jaundice AMB Hemoglobin A1c Today E11.9 - Type 2 diabetes mellitus without complications TSH reflex Free T4 2 Months R79.89 - Other specified abnormal findings of blood chemistry Referrals Gastroenterology Referral R17 - Unspecified jaundice, Z12.11 - Encounter for screening for malignant neoplasm of colon Medications: New levothyroxine 25 mcg PO DAILY 30 caps 3RF 30 days
--- OUTSIDE RECORDS SUMMARY | 2025-09-19 11:16 | XMS_ITS | Patient Health Record ---
Author Organization [facility] Address [address] [place] [address] Care Team Providers Care Log Feeder Name Role Phone Kaushik (RETIRED) Jonatan CARR [...] retired Encounters Encounter Location Date Provider Diagnosis [facility] [address] [place] [phone] 03/08/2025 Brant Ruiz Jr Plan Of Treatment Future Test Test Name Order Date COLONOSCOPY 08/19/2020 Insurance Providers Payer Name Payer Address Payer Phone Subscriber Number Group Number Insured Name Patient Relationship to Insured Coverage Start Date Coverage End Date MEDICARE OF [facility] [address] [facility] [place] [address] [id number] GEETHA FARLEY Self - patient is the insured [facility] [address] [place] [address] [id number] GEETHA FARLEY Self - patient is the insured Medical (General) History Medical History History ICD Code hyperlipidemia Surgical History Surgery Date(Month/Year)
== END 2025-09-19 11:37 | disposition home or self-care (01) ==
LOC: HO.HMCC 09:59
PROVIDERS: PCP Nurse Practitioner Family; Visit Provider Nurse Practitioner Family
DX: R17 Unspecified jaundice (principal); Z12.11 Encounter for screening for malignant neoplasm of colon; R79.89 Other specified abnormal findings of blood chemistry; E11.9 Type 2 diabetes mellitus without complications

== ENCOUNTER → 2025-09-19 09:59 | Outpatient (BNVA) | payer MEDICARE, OTHER, SELFPAY | PROVIDERS: PCP Nurse Practitioner Family; Visit Provider Nurse Practitioner Family | DX: E11.9 Type 2 diabetes mellitus without complications (principal); R17 Unspecified jaundice; R79.89 Other specified abnormal findings of blood chemistry; Z13.31 Encounter for screening for depression; Z13.39 Encounter for screening examination for other mental health and behavioral disorders | CPT/HCPCS: 83036; 96127; 99212 ==